=== PATIENT | female | born 1975 | race African-American/Black ===

== ENCOUNTER 2018-06-07 14:23 | Inpatient (IN) | payer OTHER ==
[~2018-06-07] VITALS: Ht 165.1 cm; Wt 119.0 kg
[2018-06-07] VITALS (11 sets, daily range): BP systolic 80–111; BP diastolic 39–51
[2018-06-07] MEDS ORDERED: DOXYCYCLINE HYCLATE 100 MG in IV DEXTROSE 5% 100ML 100 ML IV ONE (15:00)
[2018-06-07] MEDS ORDERED: ACETAMINOPHEN 500 MG TABLET PO ONE (15:00)
[2018-06-07] MEDS ORDERED: IPRATRPIUM/ALBUTEROL 0.5/2.5MG 3 ML NEBU. NEB ONE (15:00)
[2018-06-07] MEDS ORDERED: cefTRIAXone IV Push 1 GM VIAL. IVP ONE (15:00)
[2018-06-07] MEDS ORDERED: IV NORMAL SALINE 1000ML BAG 1,000 ML IV ONE ×3 (15:00→16:45)
--- NOTE | 2018-06-07 15:02 | RAD ---
Single view chest 06/07/2018 CLINICAL INDICATION: Chest pain for 2 days. COMPARISON: None. FINDINGS: Cardiac silhouettes unremarkable. There are patchy bibasilar airspace opacities. There is a retrocardiac gaseous density. No definite pleural effusion. No pneumothorax. IMPRESSION: 1. Patchy bibasilar airspace opacities concerning for multifocal pneumonia, though pneumonitis on an aspirational basis not excluded. 2. Retrocardiac gaseous density, may represent a hiatal hernia versus partial aeration of the left lower lobe. Electronically signed by: Rico Hill MD (06/07/2018 2:59 PM) [facility] [place]
--- NOTE | 2018-06-07 15:07 | PHYS DOC ---
Past Medical History Past Medical History: A-Fib, Asthma, Diabetes-Type II, DVT Additional Past Medical Histor: PE Past Surgical History: Cholecystectomy Alcohol Use: None Drug Use: None Adult General Chief Complaint Chief Complaint: CHEST PAIN HPI HPI Patient is a 43 year old female who presents with episodic chest pain, non-productive cough, and increasing shortness of breath for 2 weeks. She reports associated hypotension at home with systolic in 80's with tachycardia in the 130s for the last 2 days. Also reports chills last night. Recent household sick contacts with upper respiratory infection. Reports history of atrial fibrillation with PE in September 2017. Currently taking Cardizem and Xarelto with a high degree of compliance. [] Review of Systems Review of Systems Constitutional: Endorses chills. Denies fever. [] Eyes: Denies change in visual acuity, redness, or eye pain [] HENT: Denies nasal congestion or sore throat [] Respiratory: Endorses cough, shortness of breath, and dyspnea on exertion. [] Cardiovascular: Denies orthopnea[] GI: Denies abdominal pain, nausea, vomiting, bloody stools or diarrhea [] : Denies dysuria or hematuria [] Musculoskeletal: Denies back pain or joint pain [] Integument: Denies rash or skin lesions [] Neurologic: Denies headache, focal weakness or sensory changes [] Endocrine: Denies polyuria or polydipsia [] All other systems were reviewed and found to be within normal limits, except as documented in this note. Current Medications Current Medications Current Medications Medications (Trade) Dose Ordered Sig/Torey Start Time Stop Time Status Last Admin Dose Admin Acetaminophen (Tylenol) 1,000 mg 1X ONCE 06/07/18 15:00 06/07/18 15:09 DC 06/07/18 16:11 1,000 MG Albuterol/ Ipratropium (Duoneb) 3 ml 1X ONCE 06/07/18 15:00 06/07/18 15:09 DC 06/07/18 15:35 3 ML Ceftriaxone Sodium (Rocephin) 1 gm 1X ONCE 06/07/18 15:00 06/07/18 16:37 DC Doxycycline Hyclate 100 mg/ Dextrose 100 ml @ 50 mls/hr 1X ONCE 06/07/18 15:00 06/07/18 16:59 Piperacillin Sod/ Tazobactam Sod (Zosyn Per Pharmacy) 1 each PRN DAILY PRN 06/07/18 16:45 UNV Piperacillin Sod/ Tazobactam Sod 3.375 gm/Sodium Chloride 50 ml @ 100 mls/hr 1X ONCE 06/07/18 16:45 06/07/18 17:14 Sodium Chloride 1,000 ml @ 1,000 mls/hr 1X ONCE 06/07/18 16:45 06/07/18 17:44 Vancomycin HCl (Vanco Per Pharmacy) 1 each PRN DAILY PRN 06/07/18 15:00 UNV Vancomycin HCl 2 gm/Sodium Chloride 500 ml @ 250 mls/hr 1X ONCE 06/07/18 15:30 06/07/18 17:29 Allergies Allergies Allergies Coded Allergies Type Severity Reaction Last Updated Verified NSAIDS (Non-Steroidal Anti-Inflamma Allergy Unknown 02/14/15 Yes Physical Exam Physical Exam Constitutional: Well developed, well nourished, moderate acute distress, ill- appearing. [] HENT: Normocephalic, atraumatic, bilateral external ears normal, oropharynx dry , no oral exudates, nose normal. [] Eyes: PERRLA, EOMI, conjunctiva normal, no discharge. [] Neck: Normal range of motion, no tenderness, supple, no stridor. [] Cardiovascular: tachycardia, regular rhythm, no murmur [] Lungs & Thorax: Diffuse wheezing with crackles [] Abdomen: Bowel sounds normal, soft, no tenderness, no masses, no pulsatile masses. [] Skin: PALLOR Back: No tenderness, no CVA tenderness. [] Extremities: No tenderness, no cyanosis, no clubbing, ROM intact, bilateral pitting edema. [] Neurologic: Alert and oriented X 3, normal motor function, normal sensory function, no focal deficits noted. [] Psychologic: Affect normal, judgement normal, mood normal. [] Current Patient Data Vital Signs Vital Signs Date Time Temp Pulse Resp B/P (MAP) Pulse Ox O2 Delivery O2 Flow Rate FiO2 06/07/18 15:35 99 Nasal Cannula 3.0 06/07/18 14:40 98.7 134 22 110/48 (68) 98.7 Lab Values Laboratory Tests Test 06/07/18 15:15 06/07/18 15:40 White Blood Count 11.2 x10^3/uL (4.0-11.0) H Red Blood Count 1.81 x10^6/uL (3.50-5.40) L Hemoglobin 3.7 g/dL (12.0-15.5) *L Hematocrit 12.6 % (36.0-47.0) *L Mean Corpuscular Volume 70 fL (79-100) L Mean Corpuscular Hemoglobin 21 pg (25-35) L Mean Corpuscular Hemoglobin Concent 29 g/dL (31-37) L Red Cell Distribution Width 24.1 % (11.5-14.5) H Platelet Count 466 x10^3/uL (140-400) H Neutrophils (%) (Auto) 90 % (31-73) H Lymphocytes (%) (Auto) 6 % (24-48) L Monocytes (%) (Auto) 3 % (0-9) Eosinophils (%) (Auto) 0 % (0-3) Basophils (%) (Auto) 0 % (0-3) Neutrophils # (Auto) 10.2 x10^3uL (1.8-7.7) H Lymphocytes # (Auto) 0.7 x10^3/uL (1.0-4.8) L Monocytes # (Auto) 0.4 x10^3/uL (0.0-1.1) Eosinophils # (Auto) 0.0 x10^3/uL (0.0-0.7) Basophils # (Auto) 0.0 x10^3/uL (0.0-0.2) Segmented Neutrophils % 55 % (35-66) Band Neutrophils % 34 % (0-9) H Lymphocytes % 10 % (24-48) L Monocytes % 1 % (0-10) Platelet Estimate Increased (ADEQUATE) Polychromasia Slight Hypochromasia Mod Anisocytosis Mod Microcytosis Marked Ovalocytes Few Schistocytes Occ Prothrombin Time 15.2 SEC (11.7-14.0) H Prothrombin Time INR 1.2 (0.8-1.1) H Fibrinogen 593 mg/dL (200-440) H Maternal Serum HCG Beta Subunit < 1 mIU/mL (0-5) Sodium Level 138 mmol/L (136-145) Potassium Level 3.6 mmol/L (3.5-5.1) Chloride Level 99 mmol/L (98-107) Carbon Dioxide Level 18 mmol/L (21-32) L Anion Gap 21 (6-14) H Blood Urea Nitrogen 24 mg/dL (7-20) H Creatinine 1.8 mg/dL (0.6-1.0) H Estimated GFR (Cockcroft-Gault) 36.8 BUN/Creatinine Ratio 13 (6-20) Glucose Level 167 mg/dL (70-99) H Lactic Acid Level 8.2 mmol/L (0.4-2.0) *H Calcium Level 8.2 mg/dL (8.5-10.1) L Magnesium Level 1.8 mg/dL (1.8-2.4) Total Bilirubin 0.3 mg/dL (0.2-1.0) Aspartate Amino Transferase (AST) 32 U/L (15-37) Alanine Aminotransferase (ALT) 18 U/L (14-59) Alkaline Phosphatase 83 U/L (46-116) Troponin I Quantitative < 0.017 ng/mL (0.000-0.055) TW-[id number]-[id number]-Type Natriuretic Peptide 2253 pg/mL (0-124) H Total Protein 6.5 g/dL (6.4-8.2) Albumin 2.9 g/dL (3.4-5.0) L Albumin/Globulin Ratio 0.8 (1.0-1.7) L Procalcitonin 30.50 ng/mL (0.00-0.10) H O2 Saturation 87 % (92-99) L Arterial Blood pH 7.42 (7.35-7.45) Arterial Blood pCO2 at Patient Temp 26 mmHg (35-46) L Arterial Blood pO2 at Patient Temp 61 mmHg (75-108) L Arterial Blood HCO3 16 mmol/L (21-28) L Arterial Blood Base Excess -8 mmol/L (-3-3) L FiO2 32 Laboratory Tests 06/07/18 15:15 Laboratory Tests 06/07/18 15:15 EKG EKG Sinus tachycardia with probable rate related ST depression in leads V4-V6 Rate 135[] Radiology/Procedures Radiology/Procedures PROCEDURE: PORTABLE CHEST 1 Impressions: Single view chest 06/07/2018 CLINICAL INDICATION: Chest pain for 2 days. COMPARISON: None. FINDINGS: Cardiac silhouettes unremarkable. There are patchy bibasilar airspace opacities. There is a retrocardiac gaseous density. No definite pleural effusion. No pneumothorax. IMPRESSION: 1. Patchy bibasilar airspace opacities concerning for multifocal pneumonia, though pneumonitis on an aspirational basis not excluded. 2. Retrocardiac gaseous density, may represent a hiatal hernia versus partial aeration of the left lower lobe. Electronically signed by: Rico Hill MD (06/07/2018 2:59 PM) [facility] [place] Med Decision Making Course & Med Decision Making Pt is a 43 year old female with past medical history of asthma , A. fib, pulmonary emboli presents with episodic chest pain, cough, and increasing shortness of breath for 2 weeks. Patient presentation and symptoms most consistent with pneumonia and meets sepsis criteria. Recurrent pulmonary emboli is possible despite current anticoagulation treatment with Xarelto. Hemoglobin 3.7, Hct 12.6. with no identified origin of bleeding. Rule out occult GI bleed. Central line placed due to poor peripheral access. Pertinent Labs and Imaging studies reviewed. (See chart for details) Plan CXR CBC, CMP lactic, procalcitonin, BNP IVF Start Vanc and Zosyn REPEAT LACTIC ORDERED BP OK IN THE ED. CONSIDERED PE BUT MORE LIKELY SEPTIC SHOCK can't anticoagulate with hemoglobin 3.7 rectal exam is pending patient denies blood loss rectally by history. Blood repletion [] Final plan patient is critically ill Critical care time was 45 minutes exclusive of procedures. likely septic shock brought spectrum antibiotics central line was placed but then she's was already spoke with Dr. STEPHENS Indication: Vascular access Consent: The patient provided consent for this procedure. Procedure: The patient was positioned appropriately and the skin over the RIGHT IJ was prepped and draped in a sterile fashion. Local anesthesia was used. Ultrasound guidance utilized. A large bore needle was used to identify the vein. A guide wire was then inserted into the vein through the needle. A triple lumen catheter was then inserted into the vessel over the guide wire using the Seldinger technique. All ports showed good, free flowing blood return and were flushed with saline solution. The catheter was then securely fastened to the skin with sutures and covered with a sterile dressing. A post procedure X-ray was ordered. NO PTX, LINE SLIGTHLY DEEP AWAITING FINAL READ. The patient tolerated the procedure well. Complications: none. [] Dragon Disclaimer Dragon Disclaimer This electronic medical record was generated, in whole or in part, using a voice recognition dictation system. Departure Departure Impression: Primary Impression: Septic shock Additional Impression: Anemia Disposition: 09 ADMITTED INPATIENT Admitting Physician: Mindy Stephens Condition: CRITICAL Referrals: ANGELITA LABOY MD (PCP) Problem Qualifiers SARI BARON MD Jun 07, 2018 15:07
[2018-06-07] MEDS ORDERED: VANCOMYCIN 2 GM in IV NORMAL SALINE 500ML BAG 500 ML IV ONE (15:30)
[2018-06-07 15:36] LABS: BASO % 0 % (0-3); EOS % 0 % (0-3); LYMPH # 0.7 x10^3/uL (1.0-4.8); LYMPH % 6 % (24-48); MEAN CORPUSCULAR HEMOGLOBIN 21 pg (25-35); MEAN CORPUSCULAR HGB CONC 29 g/dL (31-37); MEAN CORPUSCULAR VOLUME 70 fL (79-100); MONO # 0.4 x10^3/uL (0.0-1.1); MONO % 3 % (0-9); NEUT # 10.2 x10^3uL (1.8-7.7); NEUT % 90 % (31-73); PLATELET COUNT 466 x10^3/uL (140-400); RED BLOOD COUNT 1.81 x10^6/uL (3.50-5.40); RED CELL DISTRIBUTION WIDTH 24.1 % (11.5-14.5); WHITE BLOOD COUNT 11.2 x10^3/uL (4.0-11.0)
[2018-06-07 15:46] LABS: PROTHROMBIN TIME PATIENT 15.2 SEC (11.7-14.0)
[2018-06-07 15:48] LABS: HEMATOCRIT 12.6 % (36.0-47.0); HEMOGLOBIN 3.7 g/dL (12.0-15.5)
[2018-06-07 15:50] LABS: BASE EXCESS ABG -8 mmol/L (-3-3); HCO3 ABG 16 mmol/L (21-28); PCO2 ABG 26 mmHg (35-46); PO2 ABG 61 mmHg (75-108); SAT O2 ABG 87 % (92-99)
[2018-06-07 15:52] LABS: FIO2 ABG 32
[2018-06-07 16:05] LABS: CALCIUM 8.2 mg/dL (8.5-10.1); CREATININE 1.8 mg/dL (0.6-1.0); GFR 36.8; POTASSIUM 3.6 mmol/L (3.5-5.1)
[2018-06-07 16:10] LABS: ALBUMIN 2.9 g/dL (3.4-5.0); ALBUMIN/GLOBULIN RATIO 0.8 (1.0-1.7); MAGNESIUM 1.8 mg/dL (1.8-2.4); TOTAL BILIRUBIN 0.3 mg/dL (0.2-1.0); TOTAL PROTEIN 6.5 g/dL (6.4-8.2)
[2018-06-07 16:14] LABS: % BANDS 34 % (0-9); % LYMPHS 10 % (24-48); % MONOS 1 % (0-10); % SEGS 55 % (35-66); PLT ESTIMATE INCREASED (ADEQUATE)
[2018-06-07 16:17] LABS: ANISOCYTOSIS MOD; HYPOCHROMIA MOD; MICROCYTOSIS MARKED; OVALOCYTES FEW; POLYCHROMASIA SLIGHT; SCHISTOCYTES OCC
[2018-06-07] MEDS ORDERED: PIP/TAZO PER PHARMACY MC PRN (16:45)
[2018-06-07] MEDS ORDERED: PIPERACILLIN/TAZOBACTAM 3.375 GM in IV NORMAL SALINE 50ML 50 ML IV ONE (16:45)
--- NOTE | 2018-06-07 16:55 | RAD ---
Single view chest 06/07/2018 CLINICAL INDICATION: Insertion of central line. COMPARISON: Chest 06/07/2018. FINDINGS: Right IJ central venous catheter with distal tip overlying the mid right atrial level. Cardiac and mediastinal silhouettes are stable. No significant change in right lower lobe airspace opacities, left lower lobe airspace opacities, and probable hiatal hernia. No definite pleural effusion or pneumothorax. IMPRESSION: 1. Placement of right IJ central venous catheter at the mid right atrial level. 2. Bibasilar airspace opacities concerning for multifocal infection or pneumonitis with aspiration not excluded. Follow-up two-view chest radiograph is recommended to assess for resolution. 3. Probable hiatal hernia. Electronically signed by: Rico Hill MD (06/07/2018 4:52 PM) [facility] [place]
[2018-06-07] MEDS: VANCOMYCIN PER PHARMACY MC PRN ×2 (17:12→17:14)
--- NOTE | 2018-06-07 17:13 | NUR ---
Pharmacy Vancomycin Dosing Note S:Consulted to monitor and dose vancomycin started 06/07/18. O:ADONIS PIMENTEL is a 43 year old F with sepsis, lactic acidosis. Height: 5 feet, 1 inches Weight: 111.1 kg Dosing Weight: Actual Other Antibiotics: ZOSYN 3.375G IV Q6HRS LABS: Last BUN: 24 Last Creatinine: 1.8 Creatinine Clearance: 45 mL/min Last WBC: 11.2 Last Procalcitonin: 30.5 (SCr elevated, may be false PCT level) Tmax (past 24 hours): 98.7 Microbiology: BLOOD AND URINE CX PENDING A: Patient requires vancomycin for possible sepsis, goal trough 15-20 mcg/ml. Patient's SCr is 1.8 on admission with an eCrCl of 45 ml/min; this estimate is likely inflated due to her weight. Initiate the following: P: 1. Initiate Vancomycin 1500 mg IV q24h 2. Follow up Trough level on 06/09/18 at 1630 3. Pharmacy will continue to monitor, follow and adjust therapy as needed. ALEJANDRO COREY [facility], 06/07/18 [id number]
[2018-06-07 18:17] LABS: FECAL OB PT NEGATIVE (NEG)
[2018-06-07 18:24] LABS: INFLUENZA A PATIENT NEGATIVE (NEGATIVE); INFLUENZA B PATIENT NEGATIVE (NEGATIVE)
--- NOTE | 2018-06-07 19:23 | NUR ---
Patient arrived to room 107 at 1815 from ED. Upon arrival blood pressure was 91/41. Started 1 L NS bolus. Patient was A/O x 3, experiencing SOA and was on 3 LNC. Patient had a hgb of 3.7, type and screen ordered. Because of patient antibodies, patients blood was not ready. Dr Stephens was called, received orders for emergent transfusion. Blood started at 1907, cosigned with oncoming nurse Lonnie. Bedside shift report given. Family at bedside.
[2018-06-07 21:49] LABS: RED BLOOD COUNT 2.12 x10^6/uL (3.50-5.40); RED CELL DISTRIBUTION WIDTH 24.3 % (11.5-14.5); WHITE BLOOD COUNT 7.8 x10^3/uL (4.0-11.0)
[2018-06-07 21:54] LABS: HEMATOCRIT 16.5 % (36.0-47.0); HEMOGLOBIN 5.2 g/dL (12.0-15.5)
[2018-06-07 22:32] LABS: BILIRUBIN,URINE NEGATIVE (NEG); CLARITY,URINE CLEAR; COLOR,URINE YELLOW; NITRITE,URINE NEGATIVE (NEG); PROTEIN,URINE 30 mg/dL (NEG-TRACE); UROBILINOGEN,URINE 0.2 mg/dL (0.2 mg/dL)
[2018-06-07] MEDS: IV NORMAL SALINE 1000ML BAG 1,000 ML IV SCH (22:38)
[2018-06-07 22:42] LABS: AMORPHOUS SEDIMENT,UR PRESENT /HPF; BACTERIA,URINE 0 /HPF (0-FEW); RBC,URINE RARE /HPF (0-2); SQUAMOUS EPITHELIAL CELL,UR MOD /LPF; WBC,URINE RARE /HPF (0-4)
[2018-06-07] MEDS: PIPERACILLIN/TAZOBACTAM 3.375 GM in IV NORMAL SALINE 50ML 50 ML IV SCH (23:42)
[2018-06-07] MEDS ORDERED: FUROSEMIDE 100 MG/10 ML VIAL. IVP ONE (23:55)
[2018-06-08] VITALS (26 sets, daily range): BP systolic 100–124; BP diastolic 51–72
[2018-06-08] MEDS ORDERED: ALBUTEROL SULFATE 2.5 MG/3 ML NEBU. NEB ONE (00:15)
--- NOTE | 2018-06-08 01:58 | NUR ---
Received call from blood bank notifying that pt. had antibodies to un-crossmatched blood administered emergently. Pt. had no transfusion reaction symptoms during administration. Dr. Stephens paged and returned call, notified of these findings and critical labs reported. Orders received.
[2018-06-08] MEDS: PIPERACILLIN/TAZOBACTAM 3.375 GM in IV NORMAL SALINE 50ML 50 ML IV SCH ×4 (05:46→23:42)
[2018-06-08 06:03] LABS: HEMATOCRIT 21.5 % (36.0-47.0); RED BLOOD COUNT 2.77 x10^6/uL (3.50-5.40); RED CELL DISTRIBUTION WIDTH 21.3 % (11.5-14.5); WHITE BLOOD COUNT 10.2 x10^3/uL (4.0-11.0)
[2018-06-08 06:23] LABS: ALBUMIN 2.3 g/dL (3.4-5.0); ALBUMIN/GLOBULIN RATIO 0.7 (1.0-1.7); CALCIUM 7.4 mg/dL (8.5-10.1); CREATININE 1.1 mg/dL (0.6-1.0); POTASSIUM 3.1 mmol/L (3.5-5.1); TOTAL BILIRUBIN 1.8 mg/dL (0.2-1.0); TOTAL PROTEIN 5.6 g/dL (6.4-8.2)
[2018-06-08] MEDS: IV NORMAL SALINE 1000ML BAG 1,000 ML IV SCH ×2 (07:31→20:36)
[2018-06-08] MEDS ORDERED: GABA600T7 PO (07:39)
[2018-06-08] MEDS ORDERED: IPRATRPIUM/ALBUTEROL 0.5/2.5MG 3 ML NEBU. NEB ONE (07:45)
[2018-06-08] MEDS ORDERED: RIVA15TA PO (08:56)
[2018-06-08] MEDS ORDERED: BACL20TA PO (08:56)
[2018-06-08] MEDS ORDERED: LEXAPRO20 MG PO (08:56)
[2018-06-08] MEDS ORDERED: SULF1TAB24 PO (08:56)
[2018-06-08] MEDS ORDERED: ALPR0.5T PO (08:56)
[2018-06-08] MEDS ORDERED: CYCL5TAB PO (08:56)
[2018-06-08] MEDS ORDERED: ALBU2.5V8 INH (08:56)
[2018-06-08] MEDS ORDERED: METH-38 PO (08:56)
[2018-06-08] MEDS ORDERED: DILT30TA26 PO (08:56)
[2018-06-08] MEDS ORDERED: PANT20TA2 PO (08:56)
[2018-06-08] MEDS: VANCOMYCIN PER PHARMACY MC PRN (09:18)
--- NOTE | 2018-06-08 09:34 | NUR ---
Pharmacy Vancomycin Dosing Note S:Consulted to monitor and dose vancomycin started 06/07/18. O:ADONIS PIMENTEL is a 43 year old F with Sepsis . Height: 5 feet, 1 inches Weight: 109.809844 kg [place] Body Weight: 47.80 Adjusted Body Weight: 72.68 Dosing Weight: Actual Other Antibiotics: ZOSYN 3.375G IV Q6HRS LABS: Last BUN: 24 Last Creatinine: 1.1 Creatinine Clearance: 75 mL/min Last WBC: 10.2 Last Procalcitonin: 30.5 (SCr elevated, may be false PCT level) Tmax (past 24 hours): 98.7 Microbiology: BLOOD AND URINE CX PENDING I/O: 1990/6237 Drug Levels: Last level: on at Last dose given 06/07/18 at 1700 Vancomycin Dosing: Loading Dose: 2000 mg x1 Dosing Weight: Actual Target Trough: 15-20 A: Based on: RENAL FUNCTION IMPROVEMENT P: 1. CHANGE Vancomycin 1500 mg IV q12h 2. Follow up Trough level on 06/09/18 at 2230 3. Pharmacy will continue to monitor, follow and adjust therapy as needed. KARIME GUERRIER [facility], 06/08/18 [id number]
[2018-06-08] MEDS ORDERED: FERR325T14 PO (09:45)
[2018-06-08] MEDS ORDERED: PRAM0.255 PO (09:51)
[2018-06-08] MEDS ORDERED: OXYC1TAB19 PO (09:51)
[2018-06-08] MEDS ORDERED: TIZA4TAB PO (09:51)
--- NOTE | 2018-06-08 10:38 | RAD ---
PORTABLE CHEST 1V History: CONGESTION Comparison: One day earlier Right IJ line is again identified. The tip is difficult to define but appears to overlie the right atrium as was seen previously. No evidence of pneumothorax. Opacities are identified in both lung bases similar to the prior study. There may be small pleural effusions. Retrocardiac opacity again seen and may represent a hiatal hernia. IMPRESSION: Lung base infiltrates are again identified with possible small effusions. Electronically signed by: Vince Johnson MD (06/08/2018 10:34 AM) [facility]
[2018-06-08] MEDS ORDERED: FLUT1DIS5 IH (10:48)
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
[2018-06-08] MEDS ORDERED: FUROSEMIDE 20 MG/2 ML VIAL. IVP ONE (11:15)
[2018-06-08] MEDS: CYCLOBENZAPRINE 10 MG TABLET. PO SCH ×2 (11:20→20:35)
[2018-06-08] MEDS: POTASSIUM CHLORIDE 20 MEQ TABLET.ER. PO SCH (11:20)
[2018-06-08] MEDS: PANTOPRAZOLE 40 MG TABLET.DR. PO SCH (11:20)
[2018-06-08] MEDS: dilTIAZem HCL 30 MG TABLET PO SCH ×3 (11:21→20:36)
[2018-06-08] MEDS: VANCOMYCIN 1.5 GM in IV NORMAL SALINE 500ML BAG 500 ML IV SCH ×2 (11:22→23:40)
--- NOTE | 2018-06-08 11:50 | EKG ---
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
[2018-06-08] MEDS: ALBUTEROL SULFATE 2.5 MG/3 ML NEBU. NEB SCH ×3 (12:18→19:32)
[2018-06-08] MEDS ORDERED: methylPREDNISolone SOD SUCC PF 40 MG/ML VIAL. IV SCH (12:30)
[2018-06-08] MEDS: BACLOFEN 10 MG TABLET. PO SCH ×2 (13:44→20:34)
[2018-06-08] MEDS: GABAPENTIN 300 MG CAPSULE. PO SCH ×2 (13:44→20:34)
[2018-06-08] MEDS: ACETAMINOPHEN 500 MG TABLET PO PRN (16:40)
[2018-06-08] MEDS ORDERED: VANCOMYCIN 1.75 GM in IV NORMAL SALINE 500ML BAG 500 ML IV SCH (17:00)
[2018-06-08] MEDS: PRAMIPEXOLE 0.25 MG TABLET. PO SCH (20:34)
[2018-06-09] VITALS (14 sets, daily range): BP systolic 105–135; BP diastolic 4–82
[2018-06-09] MEDS: IV NORMAL SALINE 1000ML BAG 1,000 ML IV SCH (04:15)
[2018-06-09] MEDS: PIPERACILLIN/TAZOBACTAM 3.375 GM in IV NORMAL SALINE 50ML 50 ML IV SCH ×3 (05:34→17:50)
[2018-06-09 05:54] LABS: HEMATOCRIT 29.7 % (36.0-47.0); RED BLOOD COUNT 3.85 x10^6/uL (3.50-5.40); RED CELL DISTRIBUTION WIDTH 21.2 % (11.5-14.5); WHITE BLOOD COUNT 13.1 x10^3/uL (4.0-11.0)
[2018-06-09 05:58] LABS: CREATININE 0.9 mg/dL (0.6-1.0); GFR 81.9
[2018-06-09 06:03] LABS: HEMOGLOBIN 9.5 g/dL (12.0-15.5)
[2018-06-09] MEDS: PANTOPRAZOLE 40 MG TABLET.DR. PO SCH (07:35)
[2018-06-09] MEDS: POTASSIUM CHLORIDE 20 MEQ TABLET.ER. PO SCH (07:36)
[2018-06-09] MEDS: ALBUTEROL SULFATE 2.5 MG/3 ML NEBU. NEB SCH ×4 (07:42→20:28)
[2018-06-09] MEDS ORDERED: DEXTROSE 50% 25 GM / 50ML DISP.SYRIN. IV PRN (08:15)
--- NOTE | 2018-06-09 08:28 | PDOC ---
PROGRESS NOTES Subjective Subjective Patient reports some cough and wheezing. Objective Objective Vital Signs Date Time Temp Pulse Resp B/P (MAP) Pulse Ox O2 Delivery O2 Flow Rate FiO2 06/09/18 07:43 96 Room Air 06/09/18 06:00 82 16 117/71 (86) 06/09/18 04:00 98.8 98.8 06/07/18 21:00 3.0 Intake and Output 06/09/18 07:00 Intake Total 2584 ml Output Total 3185 ml Balance -601 ml Intake IV Total 2584 ml Output Urine Total 3185 ml Physical Exam Abdomen: Normal bowel sounds, Soft, No tenderness Heart: Regular rate Extremities: No edema General: Alert, Oriented X3, No acute distress Lungs: Other (coarse BS bilateral bases with moderate diffuse expiratory wheezes) Assessment Assessment Problems Medical Problems: (1) Anemia Status: Acute (2) Septic shock Status: Acute Plan Plan of Care 1. Sepsis with pneumonia and AE asthma - stable, afebrile, no hypoxia on RA. Continue broad-spectrum abx, increase Solumedrol, continue nebs. 2. profound anemia - Hgb increased on lab today. Await Hematology consult. 3. tachycardia - resolved, no indication for Cardiology at this time. 4. s/p left leg fracture - PT and OT ordered to help maintain mobility. 5. chronic anxiety - stable, continue home medication. 6. DM2 - has been diet-controlled. May have some hyperglycemia with increase in Solumedrol, SS ordered. Comment Review of Relevant I have reviewed the following items tavon (where applicable) has been applied. Labs Laboratory Tests Test 06/07/18 15:15 06/07/18 15:40 06/07/18 17:50 06/07/18 20:40 White Blood Count 11.2 x10^3/uL (4.0-11.0) 7.8 x10^3/uL (4.0-11.0) Red Blood Count 1.81 x10^6/uL (3.50-5.40) 2.12 x10^6/uL (3.50-5.40) Hemoglobin 3.7 g/dL (12.0-15.5) 5.2 g/dL (12.0-15.5) Hematocrit 12.6 % (36.0-47.0) 16.5 % (36.0-47.0) Mean Corpuscular Volume 70 fL (79-100) 78 fL (79-100) Mean Corpuscular Hemoglobin 21 pg (25-35) 24 pg (25-35) Mean Corpuscular Hemoglobin Concent 29 g/dL (31-37) 31 g/dL (31-37) Red Cell Distribution Width 24.1 % (11.5-14.5) 24.3 % (11.5-14.5) Platelet Count 466 x10^3/uL (140-400) 345 x10^3/uL (140-400) Neutrophils (%) (Auto) 90 % (31-73) Lymphocytes (%) (Auto) 6 % (24-48) Monocytes (%) (Auto) 3 % (0-9) Eosinophils (%) (Auto) 0 % (0-3) Basophils (%) (Auto) 0 % (0-3) Neutrophils # (Auto) 10.2 x10^3uL (1.8-7.7) Lymphocytes # (Auto) 0.7 x10^3/uL (1.0-4.8) Monocytes # (Auto) 0.4 x10^3/uL (0.0-1.1) Eosinophils # (Auto) 0.0 x10^3/uL (0.0-0.7) Basophils # (Auto) 0.0 x10^3/uL (0.0-0.2) Segmented Neutrophils % 55 % (35-66) Band Neutrophils % 34 % (0-9) Lymphocytes % 10 % (24-48) Monocytes % 1 % (0-10) Platelet Estimate Increased (ADEQUATE) Polychromasia Slight Hypochromasia Mod Anisocytosis Mod Microcytosis Marked Ovalocytes Few Schistocytes Occ Prothrombin Time 15.2 SEC (11.7-14.0) Prothromb Time International Ratio 1.2 (0.8-1.1) Fibrinogen 593 mg/dL (200-440) Maternal Serum HCG Beta Subunit < 1 mIU/mL (0-5) Sodium Level 138 mmol/L (136-145) Potassium Level 3.6 mmol/L (3.5-5.1) Chloride Level 99 mmol/L (98-107) Carbon Dioxide Level 18 mmol/L (21-32) Anion Gap 21 (6-14) Blood Urea Nitrogen 24 mg/dL (7-20) Creatinine 1.8 mg/dL (0.6-1.0) Estimated GFR (Cockcroft-Gault) 36.8 BUN/Creatinine Ratio 13 (6-20) Glucose Level 167 mg/dL (70-99) Lactic Acid Level 8.2 mmol/L (0.4-2.0) 4.6 mmol/L (0.4-2.0) Calcium Level 8.2 mg/dL (8.5-10.1) Magnesium Level 1.8 mg/dL (1.8-2.4) Total Bilirubin 0.3 mg/dL (0.2-1.0) Aspartate Amino Transf (AST/SGOT) 32 U/L (15-37) Alanine Aminotransferase (ALT/SGPT) 18 U/L (14-59) Alkaline Phosphatase 83 U/L (46-116) Troponin I Quantitative < 0.017 ng/mL (0.000-0.055) [id number]-Type Natriuretic Peptide 2253 pg/mL (0-124) Total Protein 6.5 g/dL (6.4-8.2) Albumin 2.9 g/dL (3.4-5.0) Albumin/Globulin Ratio 0.8 (1.0-1.7) Procalcitonin 30.50 ng/mL (0.00-0.10) O2 Saturation 87 % (92-99) Arterial Blood pH 7.42 (7.35-7.45) Arterial Blood pCO2 at Patient Temp 26 mmHg (35-46) Arterial Blood pO2 at Patient Temp 61 mmHg (75-108) Arterial Blood HCO3 16 mmol/L (21-28) Arterial Blood Base Excess -8 mmol/L (-3-3) FiO2 32 Stool Occult Blood Negative (NEG) Influenza Type A Antigen Negative (NEGATIVE) Influenza Type B Antigen Negative (NEGATIVE) Test 06/07/18 22:15 06/08/18 05:50 06/09/18 05:38 Urine Collection Type Unknown Urine Color Yellow Urine Clarity Clear Urine pH 6.0 Urine Specific Hester 1.020 Urine Protein 30 mg/dL (NEG-TRACE) Urine Glucose (UA) Negative mg/dL (NEG) Urine Ketones (Stick) Negative mg/dL (NEG) Urine Blood Negative (NEG) Urine Nitrite Negative (NEG) Urine Bilirubin Negative (NEG) Urine Urobilinogen Dipstick 0.2 mg/dL (0.2 mg/dL) Urine Leukocyte Esterase Negative (NEG) Urine RBC Rare /HPF (0-2) Urine WBC Rare /HPF (0-4) Urine Squamous Epithelial Cells Mod /LPF Urine Amorphous Sediment Present /HPF Urine Bacteria 0 /HPF (0-FEW) White Blood Count 10.2 x10^3/uL (4.0-11.0) 13.1 x10^3/uL (4.0-11.0) Red Blood Count 2.77 x10^6/uL (3.50-5.40) 3.85 x10^6/uL (3.50-5.40) Hemoglobin 7.0 g/dL (12.0-15.5) 9.5 g/dL (12.0-15.5) Hematocrit 21.5 % (36.0-47.0) 29.7 % (36.0-47.0) Mean Corpuscular Volume 77 fL (79-100) 77 fL (79-100) Mean Corpuscular Hemoglobin 25 pg (25-35) 25 pg (25-35) Mean Corpuscular Hemoglobin Concent 33 g/dL (31-37) 32 g/dL (31-37) Red Cell Distribution Width 21.3 % (11.5-14.5) 21.2 % (11.5-14.5) Platelet Count 304 x10^3/uL (140-400) 261 x10^3/uL (140-400) Sodium Level 143 mmol/L (136-145) Potassium Level 3.1 mmol/L (3.5-5.1) Chloride Level 107 mmol/L (98-107) Carbon Dioxide Level 24 mmol/L (21-32) Anion Gap 12 (6-14) Blood Urea Nitrogen 16 mg/dL (7-20) Creatinine 1.1 mg/dL (0.6-1.0) 0.9 mg/dL (0.6-1.0) Estimated GFR (Cockcroft-Gault) 65.0 81.9 BUN/Creatinine Ratio 15 (6-20) Glucose Level 109 mg/dL (70-99) Calcium Level 7.4 mg/dL (8.5-10.1) Total Bilirubin 1.8 mg/dL (0.2-1.0) Aspartate Amino Transf (AST/SGOT) 37 U/L (15-37) Alanine Aminotransferase (ALT/SGPT) 25 U/L (14-59) Alkaline Phosphatase 67 U/L (46-116) Total Protein 5.6 g/dL (6.4-8.2) Albumin 2.3 g/dL (3.4-5.0) Albumin/Globulin Ratio 0.7 (1.0-1.7) Laboratory Tests Test 06/09/18 05:38 White Blood Count 13.1 x10^3/uL (4.0-11.0) Red Blood Count 3.85 x10^6/uL (3.50-5.40) Hemoglobin 9.5 g/dL (12.0-15.5) Hematocrit 29.7 % (36.0-47.0) Mean Corpuscular Volume 77 fL (79-100) Mean Corpuscular Hemoglobin 25 pg (25-35) Mean Corpuscular Hemoglobin Concent 32 g/dL (31-37) Red Cell Distribution Width 21.2 % (11.5-14.5) Platelet Count 261 x10^3/uL (140-400) Creatinine 0.9 mg/dL (0.6-1.0) Estimated GFR (Cockcroft-Gault) 81.9 Microbiology 06/07/18 Blood Culture - Preliminary, Resulted NO GROWTH AFTER 1 DAY Medications Current Medications Sodium Chloride 1,000 ml @ 1,000 mls/hr 1X ONCE IV Last administered on at 15:24; Start 06/07/18 at 15:00; Stop 06/07/18 at 15:59; Status DC Sodium Chloride 1,000 ml @ 1,000 mls/hr 1X ONCE IV Last administered on at 15:31; Start 06/07/18 at 15:00; Stop 06/07/18 at 15:59; Status DC Albuterol/ Ipratropium (Duoneb) 3 ml 1X ONCE NEB Last administered on at 15:35; Start 06/07/18 at 15:00; Stop 06/07/18 at 15:09; Status DC Acetaminophen (Tylenol) 1,000 mg 1X ONCE PO Last administered on 06/07/18at 16: 11; Start 06/07/18 at 15:00; Stop 06/07/18 at 15:09; Status DC Ceftriaxone Sodium (Rocephin) 1 gm 1X ONCE IVP ; Start 06/07/18 at 15:00; Stop 06/07/18 at 16:37; Status DC Vancomycin HCl (Vanco Per Pharmacy) 1 each PRN DAILY PRN MC SEE COMMENTS Last administered on 06/08/18at 09:18; Start 06/07/18 at 15:00 Doxycycline Hyclate 100 mg/ Dextrose 100 ml @ 50 mls/hr 1X ONCE IV Last administered on 06/07/18at 16:52; Start 06/07/18 at 15:00; Stop 06/07/18 at 16:59 ; Status DC Vancomycin HCl 2 gm/Sodium Chloride 500 ml @ 250 mls/hr 1X ONCE IV Last administered on 06/07/18at 16:58; Start 06/07/18 at 15:30; Stop 06/07/18 at 17:29 ; Status DC Sodium Chloride 1,000 ml @ 1,000 mls/hr 1X ONCE IV Last administered on at 16:59; Start 06/07/18 at 16:45; Stop 06/07/18 at 17:44; Status DC Piperacillin Sod/ Tazobactam Sod (Zosyn Per Pharmacy) 1 each PRN DAILY PRN MC SEE COMMENTS; Start 06/07/18 at 16:45 Piperacillin Sod/ Tazobactam Sod 3.375 gm/Sodium Chloride 50 ml @ 100 mls/hr 1X ONCE IV Last administered on 06/07/18at 16:53; Start 06/07/18 at 16:45; Stop 06/07/18 at 17:14; Status DC Piperacillin Sod/ Tazobactam Sod 3.375 gm/Sodium Chloride 50 ml @ 100 mls/hr Q6HRS IV Last administered on 06/09/18at 05:34; Start 06/08/18 at 00:00 Vancomycin HCl 1.75 gm/Sodium Chloride 500 ml @ 250 mls/hr Q24H IV ; Start at 17:00; Status Cancel Vancomycin HCl (Vancomycin Trough Level) 1 each 1X ONCE MC ; Start 06/09/18 at 22:30; Stop 06/09/18 at 22:31 Vancomycin HCl 1.5 gm/Sodium Chloride 500 ml @ 250 mls/hr Q12H IV Last administered on 06/08/18 23:40; Start 06/08/18 at 11:00 Sodium Chloride 1,000 ml @ 100 mls/hr Q10H IV Last administered on 06/08/18 20:36; Start 06/07/18 at 22:15 Furosemide (Lasix) 20 mg 1X ONCE IVP Last administered on 06/08/18 00:36; Start 06/07/18 at 23:55; Stop 06/07/18 at 23:56; Status DC Albuterol Sulfate (Ventolin Neb Soln) 2.5 mg 1X ONCE NEB Last administered on 06/08/18 00:18; Start 06/08/18 at 00:15; Stop 06/08/18 at 00:39; Status DC Albuterol/ Ipratropium (Duoneb) 3 ml 1X ONCE NEB Last administered on 08:44; Start 06/08/18 at 07:45; Stop 06/08/18 at 07:46; Status DC Diltiazem HCl (Cardizem) 30 mg QID PO Last administered on 06/08/18 20:36; Start 06/08/18 at 11:30 Baclofen (Lioresal) 20 mg TID PO Last administered on 06/08/18 20:34; Start at 14:00 Cyclobenzaprine HCl (Flexeril) 5 mg BID PO Last administered on 06/08/18 20:35 ; Start 06/08/18 at 11:00 Citalopram Hydrobromide (CeleXA) 40 mg DAILY PO ; Start 06/09/18 at 09:00 Gabapentin (Neurontin) 600 mg TID PO Last administered on 06/08/18 20:34; Start 06/08/18 at 14:00 Pantoprazole Sodium (Protonix) 40 mg DAILYAC PO Last administered on 06/09/18 07:35; Start 06/08/18 at 11:00 Pramipexole Dihydrochloride (miraPEX) 0.25 mg QHS PO Last administered on 20:34; Start 06/08/18 at 21:00 Acetaminophen (Tylenol) 1,000 mg PRN Q6HRS PRN PO pain Last administered on at 16:40; Start 06/08/18 at 11:00 Albuterol Sulfate (Ventolin Neb Soln) 2.5 mg RTQID NEB Last administered on at 07:42; Start 06/08/18 at 12:00 Furosemide (Lasix) 20 mg 1X ONCE IVP Last administered on 06/08/18at 11:21; Start 06/08/18 at 11:15; Stop 06/08/18 at 11:16; Status DC Potassium Chloride (Klor-Con) 20 meq DAILYWBKFT PO Last administered on at 07:36; Start 06/08/18 at 11:15 Methylprednisolone Sodium Succinate (SOLU-Medrol 40MG VIAL) 60 mg DAILY IV Last administered on 06/08/18at 12:29; Start 06/08/18 at 12:30 Albuterol Sulfate (Ventolin Neb Soln) 2.5 mg PRN Q4HRS PRN NEB SHORTNESS OF BREATH; Start 06/09/18 at 08:00 Active Scripts Active Advair 500-50 Diskus (Fluticasone/Salmeterol) 1 Each Disk.w.dev 1 Puff IH BID Reported Mirapex (Pramipexole Di-Hcl) 0.25 Mg Tablet 1 Tab PO QHS Xanax (Alprazolam) 0.5 Mg Tablet 1 Tab PO DAILY Proair Hfa Inhaler (Albuterol Sulfate) 8.5 Gm Hfa.aer.ad 1 Puff INH PRN Q6HRS PRN Baclofen 20 Mg Tablet 1 Tab PO TID Cyclobenzaprine Hcl 5 Mg Tablet 1 Tab PO BID Protonix (Pantoprazole Sodium) 20 Mg Tablet.dr 40 Mg PO DAILY Cardizem Tablet (Diltiazem Hcl) 30 Mg Tablet 30 Mg PO QID Lexapro (Escitalopram Oxalate) 20 Mg Tablet 1 Tab PO DAILY Xarelto (Rivaroxaban) 15 Mg Tablet 15 Mg PO DAILY Gabapentin 600 Mg Tablet 600 Mg PO TID Vitals/I & O Vital Sign - Last 24 Hours 06/08/18 06/08/18 06/08/18 06/08/18 08:50 09:00 10:00 11:00 Pulse 119 124 114 Resp 24 22 22 B/P (MAP) 111/58 (75) 111/52 (71) 119/59 (79) Pulse Ox 99 100 99 100 O2 Delivery Room Air Room Air Room Air Room Air 06/08/18 06/08/18 06/08/18 06/08/18 11:21 12:00 12:00 12:19 Temp 99.0 99.0 Pulse 112 112 Resp 24 B/P (MAP) 119/59 119/60 (79) Pulse Ox 100 100 O2 Delivery Room Air Room Air Room Air 06/08/18 06/08/18 06/08/18 06/08/18 13:00 14:00 15:00 16:00 Temp 98.9 98.9 Pulse 113 111 106 110 Resp 22 20 20 18 B/P (MAP) 104/57 (73) 100/66 (77) 102/63 (76) 106/56 (73) Pulse Ox 100 100 100 100 O2 Delivery Room Air Room Air Room Air Room Air 06/08/18 06/08/18 06/08/18 06/08/18 16:00 16:18 17:00 17:33 Pulse 110 110 Resp 20 B/P (MAP) 124/66 (85) 124/66 Pulse Ox 98 100 O2 Delivery Room Air Room Air Room Air 06/08/18 06/08/18 06/08/18 06/08/18 18:00 19:00 19:33 20:00 Temp 98.7 98.7 Pulse 112 110 102 Resp 22 22 22 B/P (MAP) 104/71 (82) 113/72 (86) Pulse Ox 100 100 98 100 O2 Delivery Room Air Room Air Room Air Room Air 06/08/18 06/08/18 06/08/18 06/08/18 20:00 20:36 21:00 22:00 Pulse 103 92 92 Resp 22 22 B/P (MAP) 113/72 108/60 (76) 108/70 (83) Pulse Ox 100 100 O2 Delivery Room Air Room Air Room Air 06/08/18 06/08/18 06/08/18 06/09/18 23:00 23:59 23:59 01:00 Temp 98.9 98.9 Pulse 87 90 91 Resp 22 22 22 B/P (MAP) 110/59 (76) 103/69 (80) 111/4 (39) Pulse Ox 100 97 99 O2 Delivery Room Air Room Air Room Air Room Air 06/09/18 06/09/18 06/09/18 06/09/18 02:00 03:00 04:00 04:00 Temp 98.8 98.8 Pulse 90 86 86 Resp 22 22 22 B/P (MAP) 111/76 (88) 105/81 (89) 115/80 (92) Pulse Ox 96 96 97 O2 Delivery Room Air Room Air Room Air Room Air 06/09/18 06/09/18 06/09/18 05:00 06:00 07:43 Pulse 88 82 Resp 16 16 B/P (MAP) 120/80 (93) 117/71 (86) Pulse Ox 98 98 96 O2 Delivery Room Air Room Air Room Air Intake and Output 06/08/18 06/08/18 06/09/18 15:00 23:00 07:00 Intake Total 1400 ml 1184 ml Output Total 2310 ml 510 ml 365 ml Balance -910 ml 674 ml -365 ml ABEL RIVAS MD Jun 09, 2018 08:28
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
[2018-06-09] MEDS: methylPREDNISolone SOD SUCC PF 125 MG/2 ML VIAL. IV SCH ×3 (09:00→21:11)
[2018-06-09] MEDS: dilTIAZem HCL 30 MG TABLET PO SCH (09:00)
[2018-06-09] MEDS: BACLOFEN 10 MG TABLET. PO SCH ×3 (09:12→21:08)
[2018-06-09] MEDS: GABAPENTIN 300 MG CAPSULE. PO SCH ×3 (09:12→21:13)
[2018-06-09] MEDS: CITALOPRAM 20 MG TABLET. PO SCH (09:13)
[2018-06-09] MEDS: CYCLOBENZAPRINE 10 MG TABLET. PO SCH ×2 (09:14→21:08)
[2018-06-09] MEDS ORDERED: POTASSIUM CHLORIDE 20 MEQ TABLET.ER. PO ONE (09:15)
[2018-06-09] MEDS ORDERED: MAGNESIUM SULFATE 2GM 50 ML IV ONE (09:15)
[2018-06-09 09:19] LABS: CALCIUM 7.7 mg/dL (8.5-10.1); CREATININE 0.7 mg/dL (0.6-1.0); GFR 109.5; MAGNESIUM 2.4 mg/dL (1.8-2.4); POTASSIUM 4.3 mmol/L (3.5-5.1)
[2018-06-09 09:26] LABS: CHOLESTEROL/HDL RATIO 4.5
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
--- NOTE | 2018-06-09 10:02 | CARD ---
MR#: [id number] Date of Study: 06/09/2018 Ordering Physician: NANCY BEDOLLA, Referring Physician: ABEL RIVAS Tech: Domonique Liao RDCS APPROVED REPORT EXAM: Two-dimensional and M-mode echocardiogram with Doppler and color Doppler. Other Information Quality : Good INDICATION Tachycardia 2D DIMENSIONS RVDd2.6 (2.9-3.5cm)Left Atrium(2D)3.7 (1.6-4.0cm) IVSd0.8 (0.7-1.1cm)Aortic Root(2D)2.7 (2.0-3.7cm) LVDd5.1 (3.9-5.9cm)LVOT Diameter2.2 (1.8-2.4cm) PWd0.8 (0.7-1.1cm)LVDs3.2 (2.5-4.0cm) FS (%) 30.0 %SV81.2 ml LVEF(%)60.0 (>50%) Aortic Valve AoV Peak King.153.0cm/sAoV VTI25.6cm AO Peak GR.9.4mmHgLVOT VTI 19.87cm AO Mean GR.5mmHgAVA (VTI)2.90cm2 Mitral Valve MV E Unygjcjv231.9cm/sMV DECEL [id number] MV A Ylkvpxpf31.4cm/sE/A Ratio1.4 TDI Lateral E' P. V14.74cm/sMedial E' P. V11.97cm/s E/Lateral E'8.6E/Medial E'10.6 Tricuspid Valve TR P. Tsihhrcq862es/sRAP [id number] TR Peak Gr.27npZzCPIO67rzUd Pulmonary Vein S1 Snrpialo42.0cm/sS2 Jrznwtpu84.23cm/s D2 Wvzqfumn60.2cm/s LEFT VENTRICLE The left ventricle is normal size. There is normal left ventricular wall thickness. The left ventricu lar systolic function is normal. The Ejection Fraction is 55-60%. There is normal LV segmental wall m otion. The left ventricular diastolic function and filling is normal for age. RIGHT VENTRICLE The right ventricle is normal size. The right ventricular systolic function is normal. ATRIA The left atrium size is normal. The right atrium size is normal. The interatrial septum is intact wit h no evidence for an atrial septal defect or patent foramen ovale as noted on 2-D or Doppler imaging. Injection of bubbles documented no interatrial shunt. AORTIC VALVE The aortic valve is normal in structure and function. Doppler and Color Flow revealed no significant aortic regurgitation. There is no significant aortic valvular stenosis. MITRAL VALVE The mitral valve is normal in structure and function. There is no evidence of mitral valve prolapse. There is no mitral valve stenosis. Doppler and Color-flow revealed mild mitral regurgitation. TRICUSPID VALVE The tricuspid valve is normal in structure and function. Doppler and Color Flow revealed moderate tri cuspid regurgitation. There is moderate pulmonary hypertension. The PA pressure was estimated at 53 m mHg. There is no tricuspid valve stenosis. PULMONIC VALVE The pulmonic valve is not well visualized. Doppler and Color Flow revealed trace pulmonic valvular re gurgitation. There is no pulmonic valvular stenosis. GREAT VESSELS The aortic root is normal in size. The ascending aorta is normal in size. The IVC is dilated and nena apses >50% with inspiration. PERICARDIAL EFFUSION There is no evidence of significant pericardial effusion. Critical Notification Critical Value: No <Conclusion> The left ventricular systolic function is normal. The Ejection Fraction is 55-60%. There is normal LV segmental wall motion. Mild mitral regurgitation. Moderate tricuspid regurgitation. There is moderate pulmonary hypertension. The PA pressure was estimated at 53 mmHg. There is no evidence of significant pericardial effusion. Signed by : Ke Hirsch, Electronically Approved : 06/09/2018 10:01:59
[2018-06-09] MEDS: VANCOMYCIN 1.5 GM in IV NORMAL SALINE 500ML BAG 500 ML IV SCH ×2 (10:32→23:00)
[2018-06-09] MEDS: INSULIN LISPRO 300 UNITS/3 ML INSULN.PEN. SQ SCH ×2 (12:53→18:01)
[2018-06-09] MEDS: VANCOMYCIN PER PHARMACY MC PRN ×2 (12:54→12:56)
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
--- NOTE | 2018-06-09 15:08 | NUR ---
SS following for discharge planning. SS reviewed pt chart. Pt is from home with daughter and is currently on room air. PT evaluated and recommended home at discharge. No discharge needs noted at this time. SS will continue to follow for pending discharge needs.
[2018-06-09] MEDS: PRAMIPEXOLE 0.25 MG TABLET. PO SCH (21:08)
[2018-06-09 23:24] LABS: VANC TR 5.8 mcg/mL (10.0-20.0)
[2018-06-09] MEDS: ALBUTEROL SULFATE 2.5 MG/3 ML NEBU. NEB PRN (23:30)
[2018-06-10] MEDS: VANCOMYCIN PER PHARMACY MC PRN (00:29)
--- NOTE | 2018-06-10 00:32 | NUR ---
Pharmacy Vancomycin Dosing Note S: Consulted to monitor and dose vancomycin started 06/07/18. O: ADONIS PIMENTEL is a 43 year old F with Sepsis Pneumonia . Other Antibiotics: ZOSYN 3.375G IV Q6HRS LABS: Last BUN: 12 Last Creatinine: 0.7 Creatinine Clearance: >100 (124) mL/min Last WBC: 13.1 Last Platelets: Tmax (past 24 hours): 99.0 Microbiology: 06/09 BCX NGTD I/O: 5672/1024 Drug Levels: Last Trough level: on 06/09/18 at 2305 Last dose given 06/09/18 at 1030 Vancomycin Dosing: Dosing Weight: Actual Target Trough: 15-20 A: Based on: Trough, Updated Actual Wt and Improved CrCl P: 1. 06/10/18 0000 Increased Vancomycin 1500 mg IV q8h 2. Follow up Trough level on 06/10/18 at 2330 3. Pharmacy will continue to monitor, follow and adjust therapy as needed. PEYTON PAYNE RPH, 06/10/18 0033 Signed: 06/10/18 at 0034 by PEYTON PAYNE RPH PHA
[2018-06-10 03:54] VITALS: BP 127/100
[2018-06-10] MEDS: PIPERACILLIN/TAZOBACTAM 3.375 GM in IV NORMAL SALINE 50ML 50 ML IV SCH ×3 (06:00)
[2018-06-10] MEDS: methylPREDNISolone SOD SUCC PF 125 MG/2 ML VIAL. IV SCH (06:00)
[2018-06-10] MEDS: ALBUTEROL SULFATE 2.5 MG/3 ML NEBU. NEB SCH ×4 (06:05→19:39)
[2018-06-10 06:58] LABS: HEMATOCRIT 23.3 % (36.0-47.0); HEMOGLOBIN 7.2 g/dL (12.0-15.5); RED BLOOD COUNT 2.97 x10^6/uL (3.50-5.40); RED CELL DISTRIBUTION WIDTH 21.7 % (11.5-14.5); WHITE BLOOD COUNT 19.2 x10^3/uL (4.0-11.0)
[2018-06-10 07:00] VITALS: BP 122/76
[2018-06-10 07:06] LABS: CALCIUM 8.2 mg/dL (8.5-10.1); CREATININE 0.7 mg/dL (0.6-1.0); GFR 109.5
[2018-06-10] MEDS: PANTOPRAZOLE 40 MG TABLET.DR. PO SCH (07:49)
[2018-06-10] MEDS: CITALOPRAM 20 MG TABLET. PO SCH (08:23)
[2018-06-10] MEDS: BACLOFEN 10 MG TABLET. PO SCH ×3 (08:23→21:05)
[2018-06-10] MEDS: GABAPENTIN 300 MG CAPSULE. PO SCH ×3 (08:23→21:05)
[2018-06-10] MEDS: CYCLOBENZAPRINE 10 MG TABLET. PO SCH ×2 (08:24→21:05)
[2018-06-10] MEDS: POTASSIUM CHLORIDE 20 MEQ TABLET.ER. PO SCH (08:24)
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
[2018-06-10] MEDS: VANCOMYCIN 1.5 GM in IV NORMAL SALINE 500ML BAG 500 ML IV SCH ×3 (08:25)
[2018-06-10] MEDS: INSULIN LISPRO 300 UNITS/3 ML INSULN.PEN. SQ SCH ×3 (08:33→17:56)
[2018-06-10] MEDS: IRON SUCROSE COMPLEX 300 MG in IV NORMAL SALINE 250ML 250 ML IV SCH (09:00)
[2018-06-10] MEDS: diphenhydrAMINE HCL 25 MG CAPSULE PO SCH ×2 (09:00→09:40)
[2018-06-10] MEDS: ACETAMINOPHEN 325 MG TABLET. PO SCH (09:40)
[2018-06-10] MEDS ORDERED: predniSONE 10 MG TABLET PO SCH (09:45)
--- NOTE | 2018-06-10 09:53 | PDOC ---
SUBJECTIVE Subjective Pt states that she is feeling better. She is having a productive cough with yellow sputum but breathing overall has improved. OBJECTIVE Vital Signs Vital Signs Date Time Temp Pulse Resp B/P (MAP) Pulse Ox O2 Delivery O2 Flow Rate FiO2 06/10/18 08:24 94 122/76 06/10/18 07:00 98.0 94 18 122/76 (91) 97 Room Air 98.0 06/10/18 06:06 98 Room Air 06/10/18 03:54 98.1 94 20 127/100 (109) 98 Room Air 98.1 06/09/18 23:31 98 Room Air 06/09/18 23:17 98.8 95 20 117/73 (88) 97 Room Air 98.8 06/09/18 20:28 97 Room Air 06/09/18 20:00 Room Air 06/09/18 19:45 98.2 110 22 135/82 (99) 96 Room Air 98.2 06/09/18 15:47 97 Room Air 06/09/18 14:31 97.9 107 20 128/76 (93) 96 Room Air 97.9 06/09/18 13:34 97.9 107 20 128/76 (93) 96 Room Air 97.9 06/09/18 11:49 98 Room Air I & O Intake and Output 06/10/18 06:59 Intake Total 1391 ml Output Total 1475 ml Balance -84 ml Intake Oral 1185 ml IV Total 206 ml Output Urine Total 1475 ml # Voids 1 # Bowel Movements 1 PHYSICAL EXAM Physical Exam GEN: NAD, AOx3 HEENT: MMM, EOMI, no scleral icterus/injection Cardiac: RRR, no M/R/G Lungs: rhonchi in bases bilaterally Abd: soft, non distended, NTTP Ext: no erythema/edema LE bilaterally Neuro: CN2-12 GI ASSESSMENT/PLAN Assessment/Plan Pt is a 43yo AAF admitted for sepsis and anemia 1. Sepsis with pneumonia and AE asthma - stable, afebrile, no hypoxia on RA. Improving. Will attempt to deescalate to oral antibiotics. Will attempt to change to po Prednisone. Continue nebs. 2. profound anemia - Hgb improving, Hematology following. Think just related to iron deficiency anemia. Pt getting iron transfusions today and tomorrow. 3. tachycardia - resolved, Cardiology has seen. 4. s/p left leg fracture - PT and OT ordered to help maintain mobility. 5. chronic anxiety - stable, continue home medication. 6. DM2 - has been diet-controlled. May have some hyperglycemia with increase in Solumedrol, SS ordered. 7. Hx of PE- pt's Xarelto was stopped this admission. Had PE in September. Pt still has not gotten her repeat CT Chest. Will order now. 9. Leukocytosis- likely 2/2 steroids, CTM COMMENT Lab Laboratory Tests Test 06/09/18 12:20 06/09/18 12:46 06/09/18 17:09 06/09/18 20:22 Haptoglobin 357 mg/dL (34-200) Glucose (Fingerstick) 225 mg/dL (70-99) 278 mg/dL (70-99) 283 mg/dL (70-99) Test 06/09/18 23:05 06/10/18 06:30 06/10/18 07:17 Vancomycin Level Trough 5.8 mcg/mL (10.0-20.0) Vancomycin Last Dose Date Unk Vancomycin Last Dose Time Unk White Blood Count 19.2 x10^3/uL (4.0-11.0) Red Blood Count 2.97 x10^6/uL (3.50-5.40) Hemoglobin 7.2 g/dL (12.0-15.5) Hematocrit 23.3 % (36.0-47.0) Mean Corpuscular Volume 78 fL (79-100) Mean Corpuscular Hemoglobin 24 pg (25-35) Mean Corpuscular Hemoglobin Concent 31 g/dL (31-37) Red Cell Distribution Width 21.7 % (11.5-14.5) Platelet Count 287 x10^3/uL (140-400) Sodium Level 141 mmol/L (136-145) Potassium Level 4.0 mmol/L (3.5-5.1) Chloride Level 107 mmol/L (98-107) Carbon Dioxide Level 24 mmol/L (21-32) Anion Gap 10 (6-14) Blood Urea Nitrogen 12 mg/dL (7-20) Creatinine 0.7 mg/dL (0.6-1.0) Estimated GFR (Cockcroft-Gault) 109.5 Glucose Level 186 mg/dL (70-99) Calcium Level 8.2 mg/dL (8.5-10.1) Procalcitonin 7.40 ng/mL (0.00-0.10) Glucose (Fingerstick) 169 mg/dL (70-99) ANGELITA LABOY MD Jun 10, 2018 09:53
--- NOTE | 2018-06-10 10:02 | NUR ---
prednisone PO held this morning, patient received IV solumedrol at 0600.
[2018-06-10] MEDS ORDERED: IOHEXOL 350 MG/ML 100 ML VIAL. IV ONE (10:45)
[2018-06-10 11:00] VITALS: BP 124/81
--- NOTE | 2018-06-10 13:02 | RAD ---
Chest CTA History: Pulmonary embolism on outside facility exam, status post knee surgery Technique: After bolus of intravenous contrast, CT imaging was performed of the chest. Multiplanar reconstruction images to include MIP reconstruction images are submitted. Exposure: One or more of the following individualized dose reduction techniques were utilized for this examination: 1. Automated exposure control 2. Adjustment of the mA and/or kV according to patient size 3. Use of iterative reconstruction technique. Comparison: None available Findings: [There is some motion degradation.] There are some small pulmonary emboli in left lower lobe branches, no embolism of the main pulmonary arteries. There are very small dependent pleural effusions bilaterally. There is prominent right lower lobe infiltrate, to lesser degree of the left lower lobe. There is moderate to large hiatal hernia containing majority of the stomach, adjacent compressive atelectasis left lower lobe. There is mediastinal lymphadenopathy, precarinal node about 1.1 cm short axis dimension and subcarinal node about 1 cm short axis dimension. There are also hilar nodes right greater than left, largest on the right about 1.1 cm short axis dimension. There is no pneumothorax. Thoracic aortic caliber is within normal limits, no intraluminal flap. Heart is somewhat enlarged. There is likely hepatic steatosis. There is right internal jugular venous catheter. Impression: 1. There are small pulmonary emboli in left lower lobe branches. 2. There are small dependent pleural effusions bilaterally. There is prominent right lower lobe infiltrate, to lesser degree on the left for which follow-up after treatment advised. 3. There is moderate to large hiatal hernia containing most of the stomach, compressive atelectasis of left lower lobe. 4. There is nonspecific mediastinal and right greater than left hilar lymphadenopathy. 5. There is hepatic steatosis. Electronically signed by: Buck Castañeda MD (06/10/2018 12:59 PM) [id number]
[2018-06-10 15:00] VITALS: BP 101/71
[2018-06-10 19:30] VITALS: BP 130/77
[2018-06-10] MEDS: PRAMIPEXOLE 0.25 MG TABLET. PO SCH (21:05)
[2018-06-10 23:09] VITALS: BP 122/87
[2018-06-10] MEDS: ALBUTEROL SULFATE 2.5 MG/3 ML NEBU. NEB PRN (23:41)
[2018-06-11 03:26] VITALS: BP 128/79
[2018-06-11 06:31] LABS: BASO # 0.1 x10^3/uL (0.0-0.2); BASO % 0 % (0-3); EOS # 0.4 x10^3/uL (0.0-0.7); EOS % 2 % (0-3); HEMATOCRIT 22.6 % (36.0-47.0); HEMOGLOBIN 7.1 g/dL (12.0-15.5); LYMPH # 1.6 x10^3/uL (1.0-4.8); LYMPH % 7 % (24-48); MEAN CORPUSCULAR HEMOGLOBIN 24 pg (25-35); MEAN CORPUSCULAR HGB CONC 31 g/dL (31-37); MEAN CORPUSCULAR VOLUME 78 fL (79-100); MONO # 2.6 x10^3/uL (0.0-1.1); MONO % 11 % (0-9); NEUT # 18.7 x10^3uL (1.8-7.7); NEUT % 80 % (31-73); PLATELET COUNT 294 x10^3/uL (140-400); RED CELL DISTRIBUTION WIDTH 22.6 % (11.5-14.5); WHITE BLOOD COUNT 23.3 x10^3/uL (4.0-11.0)
[2018-06-11 07:00] VITALS: BP 127/75
[2018-06-11 07:09] LABS: CALCIUM 8.3 mg/dL (8.5-10.1); CREATININE 0.8 mg/dL (0.6-1.0); GFR 93.9; POTASSIUM 3.8 mmol/L (3.5-5.1)
[2018-06-11] MEDS: ALBUTEROL SULFATE 2.5 MG/3 ML NEBU. NEB SCH ×4 (07:28→21:40)
[2018-06-11] MEDS ORDERED: RIVAROXABAN 15 MG TABLET. PO SCH (07:45)
[2018-06-11] MEDS: ACETAMINOPHEN 325 MG TABLET. PO SCH (07:45)
[2018-06-11] MEDS: POTASSIUM CHLORIDE 20 MEQ TABLET.ER. PO SCH (07:46)
[2018-06-11] MEDS: PANTOPRAZOLE 40 MG TABLET.DR. PO SCH (07:46)
[2018-06-11] MEDS: diphenhydrAMINE HCL 25 MG CAPSULE PO SCH (07:51)
[2018-06-11] MEDS: INSULIN LISPRO 300 UNITS/3 ML INSULN.PEN. SQ SCH ×3 (07:54→17:13)
--- NOTE | 2018-06-11 07:57 | PDOC ---
SUBJECTIVE Subjective Pt is feeling worse this morning. Still having a productive cough with yellow sputum. Feels that her wheezing and chest tightness has worsened. Feels weak and tired this morning. Pt's antibiotics and steroids were changed from IV to po yesterday; will change steroids back to IV. Pt's CT chest showed persistent PE; will resume pt's Xarelto and will consult pulmonary OBJECTIVE Vital Signs Vital Signs Date Time Temp Pulse Resp B/P (MAP) Pulse Ox O2 Delivery O2 Flow Rate FiO2 06/11/18 07:28 97 Room Air 06/11/18 07:00 98.0 89 18 127/75 (92) 95 Room Air 98.0 06/11/18 03:26 98.7 87 18 128/79 (95) 95 Room Air 98.7 06/10/18 23:41 Room Air 06/10/18 23:09 98.1 83 18 122/87 (99) 95 Room Air 98.1 06/10/18 20:00 Room Air 06/10/18 19:30 98.3 90 18 130/77 (94) 95 Room Air 98.3 06/10/18 19:29 96 Room Air 06/10/18 15:00 98.1 95 18 101/71 (81) 95 Room Air 98.1 06/10/18 14:52 95 Room Air 06/10/18 11:00 98.6 94 18 124/81 (95) 95 Room Air 98.6 06/10/18 10:50 Room Air 06/10/18 08:24 94 122/76 06/10/18 08:00 Room Air I & O Intake and Output 06/11/18 06:59 Intake Total 1100 ml Output Total 2000 ml Balance -900 ml Intake Oral 1100 ml Output Urine Total 2000 ml PHYSICAL EXAM Physical Exam GEN: NAD, AOx3 HEENT: MMM, EOMI, no scleral icterus/injection Cardiac: tachycardic, regular rhythm, no M/R/G Lungs: CTAB, regular breathing rate and effort Abd: soft, non distended, NTTP Ext: 2+ pitting edema LE bilaterally Neuro: CN2-12 GI ASSESSMENT/PLAN Assessment/Plan Pt is a 43yo AAF admitted for sepsis and anemia 1. Sepsis with pneumonia and AE asthma - afebrile, no hypoxia on RA. Pt was feeling better yesterday so abx and steroids were changed from IV to po. Will change back to IV steroids for now and will have pulmonary evaluate pt as well. Pt currently receiving pneumonia. Continue nebs. 2. Persistent PE- pt's Xarelto was stopped on admission, repeat CT chest obtained. Will resume pt's Xarelto. Pt's PE was in September. 3. Pulmonary HTN 4. profound anemia - Hgb stable, Hematology following. Think just related to iron deficiency anemia. Pt received iron transfusion yesterday and will get another today 5. s/p left leg fracture - PT and OT ordered to help maintain mobility. 6. chronic anxiety - stable, continue home medication. 7. DM2 - has been diet-controlled. May have some hyperglycemia with increase in Solumedrol, SS ordered. 8. Leukocytosis- likely 2/2 steroids, CTM COMMENT Lab Laboratory Tests Test 06/10/18 12:11 06/10/18 17:09 06/10/18 20:24 06/11/18 06:26 Glucose (Fingerstick) 215 mg/dL (70-99) 265 mg/dL (70-99) 220 mg/dL (70-99) White Blood Count 23.3 x10^3/uL (4.0-11.0) Red Blood Count 2.90 x10^6/uL (3.50-5.40) Hemoglobin 7.1 g/dL (12.0-15.5) Hematocrit 22.6 % (36.0-47.0) Mean Corpuscular Volume 78 fL (79-100) Mean Corpuscular Hemoglobin 24 pg (25-35) Mean Corpuscular Hemoglobin Concent 31 g/dL (31-37) Red Cell Distribution Width 22.6 % (11.5-14.5) Platelet Count 294 x10^3/uL (140-400) Neutrophils (%) (Auto) 80 % (31-73) Lymphocytes (%) (Auto) 7 % (24-48) Monocytes (%) (Auto) 11 % (0-9) Eosinophils (%) (Auto) 2 % (0-3) Basophils (%) (Auto) 0 % (0-3) Neutrophils # (Auto) 18.7 x10^3uL (1.8-7.7) Lymphocytes # (Auto) 1.6 x10^3/uL (1.0-4.8) Monocytes # (Auto) 2.6 x10^3/uL (0.0-1.1) Eosinophils # (Auto) 0.4 x10^3/uL (0.0-0.7) Basophils # (Auto) 0.1 x10^3/uL (0.0-0.2) Sodium Level 142 mmol/L (136-145) Potassium Level 3.8 mmol/L (3.5-5.1) Chloride Level 107 mmol/L (98-107) Carbon Dioxide Level 27 mmol/L (21-32) Anion Gap 8 (6-14) Blood Urea Nitrogen 12 mg/dL (7-20) Creatinine 0.8 mg/dL (0.6-1.0) Estimated GFR (Cockcroft-Gault) 93.9 Glucose Level 137 mg/dL (70-99) Calcium Level 8.3 mg/dL (8.5-10.1) Test 06/11/18 07:27 Glucose (Fingerstick) 111 mg/dL (70-99) ANGELITA LABOY MD Jun 11, 2018 07:57
[2018-06-11] MEDS ORDERED: FUROSEMIDE 40 MG/4 ML VIAL. IVP ONE (08:00)
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
[2018-06-11] MEDS: methylPREDNISolone SOD SUCC PF 40 MG/ML VIAL. IV SCH ×3 (08:54→21:33)
[2018-06-11] MEDS: CYCLOBENZAPRINE 10 MG TABLET. PO SCH ×2 (08:55→21:33)
[2018-06-11] MEDS: IRON SUCROSE COMPLEX 300 MG in IV NORMAL SALINE 250ML 250 ML IV SCH (08:55)
[2018-06-11] MEDS: GABAPENTIN 300 MG CAPSULE. PO SCH ×3 (08:55→21:32)
[2018-06-11] MEDS: CITALOPRAM 20 MG TABLET. PO SCH (08:56)
[2018-06-11] MEDS: BACLOFEN 10 MG TABLET. PO SCH ×3 (08:56→21:33)
[2018-06-11] MEDS: BENZONATATE 100 MG CAPSULE. PO SCH ×3 (08:58→21:32)
[2018-06-11 09:04] LABS: % BANDS 9 % (0-9); % EOS 3 % (0-5); % LYMPHS 8 % (24-48); % METAS 5 % (0-0); % MONOS 10 % (0-10); % SEGS 65 % (35-66); NUCLEATED RBC 7
[2018-06-11 09:17] LABS: ANISOCYTOSIS MOD; PLT ESTIMATE ADEQUATE (ADEQUATE); POLYCHROMASIA PRESENT
[2018-06-11 09:18] LABS: HYPOCHROMIA SLIGHT; OVALOCYTES OCC; POIKILOCYTOSIS SLIGHT
[2018-06-11] MEDS: ACETAMINOPHEN 500 MG TABLET PO PRN (14:22)
--- NOTE | 2018-06-11 14:51 | NUR ---
SW following. No SW needs noted at this time. Will continue to follow.
--- NOTE | 2018-06-11 15:19 | PDOC ---
PULMONARY PROGRESS NOTES Vitals Vital Signs Date Time Temp Pulse Resp B/P (MAP) Pulse Ox O2 Delivery O2 Flow Rate FiO2 06/11/18 11:02 Room Air 06/11/18 08:56 89 127/75 06/11/18 07:28 97 06/11/18 07:00 98.0 18 98.0 Labs Laboratory Tests Test 06/09/18 17:09 06/09/18 20:22 06/09/18 23:05 06/10/18 06:30 Glucose (Fingerstick) 278 mg/dL (70-99) 283 mg/dL (70-99) Vancomycin Level Trough 5.8 mcg/mL (10.0-20.0) Vancomycin Last Dose Date Unk Vancomycin Last Dose Time Unk White Blood Count 19.2 x10^3/uL (4.0-11.0) Red Blood Count 2.97 x10^6/uL (3.50-5.40) Hemoglobin 7.2 g/dL (12.0-15.5) Hematocrit 23.3 % (36.0-47.0) Mean Corpuscular Volume 78 fL (79-100) Mean Corpuscular Hemoglobin 24 pg (25-35) Mean Corpuscular Hemoglobin Concent 31 g/dL (31-37) Red Cell Distribution Width 21.7 % (11.5-14.5) Platelet Count 287 x10^3/uL (140-400) Sodium Level 141 mmol/L (136-145) Potassium Level 4.0 mmol/L (3.5-5.1) Chloride Level 107 mmol/L (98-107) Carbon Dioxide Level 24 mmol/L (21-32) Anion Gap 10 (6-14) Blood Urea Nitrogen 12 mg/dL (7-20) Creatinine 0.7 mg/dL (0.6-1.0) Estimated GFR (Cockcroft-Gault) 109.5 Glucose Level 186 mg/dL (70-99) Calcium Level 8.2 mg/dL (8.5-10.1) Procalcitonin 7.40 ng/mL (0.00-0.10) Test 06/10/18 07:17 06/10/18 12:11 06/10/18 17:09 06/10/18 20:24 Glucose (Fingerstick) 169 mg/dL (70-99) 215 mg/dL (70-99) 265 mg/dL (70-99) 220 mg/dL (70-99) Test 06/11/18 06:26 06/11/18 07:27 06/11/18 11:56 White Blood Count 23.3 x10^3/uL (4.0-11.0) Red Blood Count 2.90 x10^6/uL (3.50-5.40) Hemoglobin 7.1 g/dL (12.0-15.5) Hematocrit 22.6 % (36.0-47.0) Mean Corpuscular Volume 78 fL (79-100) Mean Corpuscular Hemoglobin 24 pg (25-35) Mean Corpuscular Hemoglobin Concent 31 g/dL (31-37) Red Cell Distribution Width 22.6 % (11.5-14.5) Platelet Count 294 x10^3/uL (140-400) Neutrophils (%) (Auto) 80 % (31-73) Lymphocytes (%) (Auto) 7 % (24-48) Monocytes (%) (Auto) 11 % (0-9) Eosinophils (%) (Auto) 2 % (0-3) Basophils (%) (Auto) 0 % (0-3) Neutrophils # (Auto) 18.7 x10^3uL (1.8-7.7) Lymphocytes # (Auto) 1.6 x10^3/uL (1.0-4.8) Monocytes # (Auto) 2.6 x10^3/uL (0.0-1.1) Eosinophils # (Auto) 0.4 x10^3/uL (0.0-0.7) Basophils # (Auto) 0.1 x10^3/uL (0.0-0.2) Segmented Neutrophils % 65 % (35-66) Band Neutrophils % 9 % (0-9) Lymphocytes % 8 % (24-48) Monocytes % 10 % (0-10) Eosinophils % 3 % (0-5) Metamyelocytes % 5 % (0-0) Nucleated Red Blood Cells 7 Platelet Estimate Adequate (ADEQUATE) Polychromasia Present Hypochromasia Slight Poikilocytosis Slight Basophilic Stippling Present Anisocytosis Mod Ovalocytes Occ Sodium Level 142 mmol/L (136-145) Potassium Level 3.8 mmol/L (3.5-5.1) Chloride Level 107 mmol/L (98-107) Carbon Dioxide Level 27 mmol/L (21-32) Anion Gap 8 (6-14) Blood Urea Nitrogen 12 mg/dL (7-20) Creatinine 0.8 mg/dL (0.6-1.0) Estimated GFR (Cockcroft-Gault) 93.9 Glucose Level 137 mg/dL (70-99) Calcium Level 8.3 mg/dL (8.5-10.1) Glucose (Fingerstick) 111 mg/dL (70-99) 165 mg/dL (70-99) Laboratory Tests Test 06/10/18 17:09 06/10/18 20:24 06/11/18 06:26 06/11/18 07:27 Glucose (Fingerstick) 265 mg/dL (70-99) 220 mg/dL (70-99) 111 mg/dL (70-99) White Blood Count 23.3 x10^3/uL (4.0-11.0) Red Blood Count 2.90 x10^6/uL (3.50-5.40) Hemoglobin 7.1 g/dL (12.0-15.5) Hematocrit 22.6 % (36.0-47.0) Mean Corpuscular Volume 78 fL (79-100) Mean Corpuscular Hemoglobin 24 pg (25-35) Mean Corpuscular Hemoglobin Concent 31 g/dL (31-37) Red Cell Distribution Width 22.6 % (11.5-14.5) Platelet Count 294 x10^3/uL (140-400) Neutrophils (%) (Auto) 80 % (31-73) Lymphocytes (%) (Auto) 7 % (24-48) Monocytes (%) (Auto) 11 % (0-9) Eosinophils (%) (Auto) 2 % (0-3) Basophils (%) (Auto) 0 % (0-3) Neutrophils # (Auto) 18.7 x10^3uL (1.8-7.7) Lymphocytes # (Auto) 1.6 x10^3/uL (1.0-4.8) Monocytes # (Auto) 2.6 x10^3/uL (0.0-1.1) Eosinophils # (Auto) 0.4 x10^3/uL (0.0-0.7) Basophils # (Auto) 0.1 x10^3/uL (0.0-0.2) Segmented Neutrophils % 65 % (35-66) Band Neutrophils % 9 % (0-9) Lymphocytes % 8 % (24-48) Monocytes % 10 % (0-10) Eosinophils % 3 % (0-5) Metamyelocytes % 5 % (0-0) Nucleated Red Blood Cells 7 Platelet Estimate Adequate (ADEQUATE) Polychromasia Present Hypochromasia Slight Poikilocytosis Slight Basophilic Stippling Present Anisocytosis Mod Ovalocytes Occ Sodium Level 142 mmol/L (136-145) Potassium Level 3.8 mmol/L (3.5-5.1) Chloride Level 107 mmol/L (98-107) Carbon Dioxide Level 27 mmol/L (21-32) Anion Gap 8 (6-14) Blood Urea Nitrogen 12 mg/dL (7-20) Creatinine 0.8 mg/dL (0.6-1.0) Estimated GFR (Cockcroft-Gault) 93.9 Glucose Level 137 mg/dL (70-99) Calcium Level 8.3 mg/dL (8.5-10.1) Test 06/11/18 11:56 Glucose (Fingerstick) 165 mg/dL (70-99) Medications Active Scripts Medications Dose Route/Sig Max Daily Dose Days Date Category Advair 500-50 Diskus (Fluticasone/Salmeterol) 1 Each Disk.w.dev 1 Puff IH BID 06/08/18 Rx Mirapex (Pramipexole Di-Hcl) 0.25 Mg Tablet 1 Tab PO QHS 06/08/18 Reported Xanax (Alprazolam) 0.5 Mg Tablet 1 Tab PO DAILY 06/08/18 Reported Proair Hfa Inhaler (Albuterol Sulfate) 8.5 Gm Hfa.aer.ad 1 Puff INH PRN Q6HRS PRN 06/08/18 Reported Baclofen 20 Mg Tablet 1 Tab PO TID 06/08/18 Reported Cyclobenzaprine Hcl 5 Mg Tablet 1 Tab PO BID 06/08/18 Reported Protonix (Pantoprazole Sodium) 20 Mg Tablet.dr 40 Mg PO DAILY 06/08/18 Reported Cardizem Tablet (Diltiazem Hcl) 30 Mg Tablet 30 Mg PO QID 06/08/18 Reported Lexapro (Escitalopram Oxalate) 20 Mg Tablet 1 Tab PO DAILY 06/08/18 Reported Xarelto (Rivaroxaban) 15 Mg Tablet 15 Mg PO DAILY 06/08/18 Reported Gabapentin 600 Mg Tablet 600 Mg PO TID 06/08/18 Reported Impression . FULL CONSULT DICTATED THANKS SEE ORDERS WILL CHECK NOCT DESAT STUDY DOUBT SEC PUL HTN SEC TO CHRONIC EMBOLI JEREMI WINN MD Jun 11, 2018 15:19
[2018-06-11 19:20] VITALS: BP 143/87
[2018-06-11] MEDS: LACTOBACILLUS RHAMNOSUS GG 1 CAPSULE. PO SCH (21:32)
[2018-06-11] MEDS: APIXABAN 5 MG TABLET. PO SCH (21:32)
[2018-06-11] MEDS: PRAMIPEXOLE 0.25 MG TABLET. PO SCH (21:32)
[2018-06-11 23:29] VITALS: BP 141/87
[2018-06-12 03:24] VITALS: BP 142/86
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
[2018-06-12] MEDS: methylPREDNISolone SOD SUCC PF 40 MG/ML VIAL. IV SCH (05:31)
[2018-06-12 07:15] VITALS: BP 144/88
[2018-06-12] MEDS: ALBUTEROL SULFATE 2.5 MG/3 ML NEBU. NEB SCH ×3 (07:56→14:46)
--- NOTE | 2018-06-12 08:01 | PDOC3 ---
Discharge Summary Date of Admission: Jun 07, 2018 Date of Discharge: Jun 12, 2018 Follow-Up: Other (5-[address] Laoby, f/u with Dr. Martinez as well) Admitting Diagnosis comment: Severe anemia, sepsis 2/2 pneumonia FINAL DIAGNOSIS Sepsis 2/2 pneumonia, asthma exacerbation, severe anemia, recurrent PE, pulmonary HTN, hx left leg fracture, chronic anxiety, DM2, Leukocytosis Brief Hospital Course DISCHARGE PHYSICAL EXAM GEN: NAD, AOx3 HEENT: MMM, EOMI, no scleral icterus/injection Cardiac: tachycardic, regular rhythm, no M/R/G Lungs: dull on RLL, regular breathing rate and effort Abd: soft, non distended, NTTP Ext: 2+ pitting edema LE bilaterally Neuro: CN2-12 GI Pt is a 43yo AAF admitted for sepsis and anemia- pt feeling much better today and would prefer to go home as opposed to SNF 1. Sepsis with pneumonia and AE asthma - afebrile, no hypoxia on RA. Pt currently on Levaquin and IV steroids. Will D/C on prednisone taper. 2. Persistent PE- pt's Xarelto was stopped on admission, repeat CT chest obtained which shows apparently new PE on the left. Pt's xarelto initially resumed and then switched to eliquis by Heme. Pt will be getting repeat CT Chest in 6 months and f/u with Hematology. 3. Pulmonary HTN 4. profound anemia - Hgb stable, Hematology following. Think related to iron deficiency anemia. Pt is s/p 4 units PRBCs and iron transfusion this hospitalization. Continue Ferrous Sulfate outpatient. 5. s/p left leg fracture - PT and OT following during admission. 6. chronic anxiety - stable, continue home medication. 7. DM2 - has been diet-controlled. May have some hyperglycemia with increase in Solumedrol, had SSI during hospitalization 8. Leukocytosis- likely 2/2 steroids. Pt remains afebrile CONDITION AT DISCHARGE: Improved Discharge Medications Baclofen (Lioresal) 20 mg TID PO Last administered on 06/11/18at 21:33; Start at 14:00 Cyclobenzaprine HCl (Flexeril) 5 mg BID PO Last administered on 06/11/18at 21:33 ; Start 06/08/18 at 11:00 Gabapentin (Neurontin) 600 mg TID PO Last administered on 06/11/18 21:32; Start 06/08/18 at 14:00 Pantoprazole Sodium (Protonix) 40 mg DAILYAC PO Last administered on 06/11/18 07:46; Start 06/08/18 at 11:00 Pramipexole Dihydrochloride (miraPEX) 0.25 mg QHS PO Last administered on 21:32; Start 06/08/18 at 21:00 Acetaminophen (Tylenol) 1,000 mg PRN Q6HRS PRN PO pain Last administered on 14:22; Start 06/08/18 at 11:00 Albuterol Sulfate (Ventolin Neb Soln) 2.5 mg RTQID NEB Last administered on 21:40; Start 06/08/18 at 12:00 Potassium Chloride (Klor-Con) 20 meq DAILYWBKFT PO Last administered on 07:46; Start 06/08/18 at 11:15 Diltiazem HCl (Cardizem 24hr Cd) 120 mg DAILY PO Last administered on 08:56; Start 06/09/18 at 09:30 Prednisone (Prednisone) 60 mg DAILY PO ; Start 06/10/18 at 09:45; Stop 06/11/18 at 07:51; Status DC Levofloxacin (Levaquin) 500 mg DAILY06 PO Last administered on 06/12/18 05:31 ; Start 06/10/18 at 10:00 Apixaban (Eliquis) 10 mg BID PO Last administered on 06/11/18 21:32; Start at 21:00 Lactobacillus Rhamnosus (Culturelle) 1 cap BID PO Last administered on 21:32; Start 06/11/18 at 21:00 Advair 500-50 Diskus (Fluticasone/Salmeterol) 1 Each Disk.w.dev 1 Puff IH BID Xanax (Alprazolam) 0.5 Mg Tablet 1 Tab PO DAILY Lexapro (Escitalopram Oxalate) 20 Mg Tablet 1 Tab PO DAILY Gabapentin 600 Mg Tablet 600 Mg PO TID Lasix 40mg po qday x 5days Vital Signs Vital Signs Date Time Temp Pulse Resp B/P (MAP) Pulse Ox O2 Delivery O2 Flow Rate FiO2 06/12/18 07:15 98.6 77 20 144/88 (106) 93 Room Air 98.6 Labs Laboratory Tests Test 06/10/18 12:11 06/10/18 17:09 06/10/18 20:24 06/11/18 06:26 Glucose (Fingerstick) 215 mg/dL (70-99) 265 mg/dL (70-99) 220 mg/dL (70-99) White Blood Count 23.3 x10^3/uL (4.0-11.0) Red Blood Count 2.90 x10^6/uL (3.50-5.40) Hemoglobin 7.1 g/dL (12.0-15.5) Hematocrit 22.6 % (36.0-47.0) Mean Corpuscular Volume 78 fL (79-100) Mean Corpuscular Hemoglobin 24 pg (25-35) Mean Corpuscular Hemoglobin Concent 31 g/dL (31-37) Red Cell Distribution Width 22.6 % (11.5-14.5) Platelet Count 294 x10^3/uL (140-400) Neutrophils (%) (Auto) 80 % (31-73) Lymphocytes (%) (Auto) 7 % (24-48) Monocytes (%) (Auto) 11 % (0-9) Eosinophils (%) (Auto) 2 % (0-3) Basophils (%) (Auto) 0 % (0-3) Neutrophils # (Auto) 18.7 x10^3uL (1.8-7.7) Lymphocytes # (Auto) 1.6 x10^3/uL (1.0-4.8) Monocytes # (Auto) 2.6 x10^3/uL (0.0-1.1) Eosinophils # (Auto) 0.4 x10^3/uL (0.0-0.7) Basophils # (Auto) 0.1 x10^3/uL (0.0-0.2) Segmented Neutrophils % 65 % (35-66) Band Neutrophils % 9 % (0-9) Lymphocytes % 8 % (24-48) Monocytes % 10 % (0-10) Eosinophils % 3 % (0-5) Metamyelocytes % 5 % (0-0) Nucleated Red Blood Cells 7 Platelet Estimate Adequate (ADEQUATE) Polychromasia Present Hypochromasia Slight Poikilocytosis Slight Basophilic Stippling Present Anisocytosis Mod Ovalocytes Occ Sodium Level 142 mmol/L (136-145) Potassium Level 3.8 mmol/L (3.5-5.1) Chloride Level 107 mmol/L (98-107) Carbon Dioxide Level 27 mmol/L (21-32) Anion Gap 8 (6-14) Blood Urea Nitrogen 12 mg/dL (7-20) Creatinine 0.8 mg/dL (0.6-1.0) Estimated GFR (Cockcroft-Gault) 93.9 Glucose Level 137 mg/dL (70-99) Calcium Level 8.3 mg/dL (8.5-10.1) Test 06/11/18 07:27 06/11/18 11:56 06/11/18 17:04 06/11/18 19:54 Glucose (Fingerstick) 111 mg/dL (70-99) 165 mg/dL (70-99) 322 mg/dL (70-99) 248 mg/dL (70-99) Test 06/12/18 07:10 Glucose (Fingerstick) 177 mg/dL (70-99) Laboratory Tests Test 06/11/18 11:56 06/11/18 17:04 06/11/18 19:54 06/12/18 07:10 Glucose (Fingerstick) 165 mg/dL (70-99) 322 mg/dL (70-99) 248 mg/dL (70-99) 177 mg/dL (70-99) Allergies Allergies Coded Allergies Type Severity Reaction Last Updated Verified NSAIDS (Non-Steroidal Anti-Inflamma Allergy Intermediate 06/12/18 Yes Disposition/Orders: D/C to Home ANGELITA LABOY MD Jun 12, 2018 08:01
[2018-06-12] MEDS: LACTOBACILLUS RHAMNOSUS GG 1 CAPSULE. PO SCH (08:25)
[2018-06-12] MEDS: PANTOPRAZOLE 40 MG TABLET.DR. PO SCH (08:26)
[2018-06-12] MEDS: POTASSIUM CHLORIDE 20 MEQ TABLET.ER. PO SCH (08:26)
[2018-06-12] MEDS: diphenhydrAMINE HCL 25 MG CAPSULE PO SCH (08:26)
[2018-06-12] MEDS: BENZONATATE 100 MG CAPSULE. PO SCH (08:26)
[2018-06-12] MEDS: APIXABAN 5 MG TABLET. PO SCH (08:27)
[2018-06-12] MEDS: BACLOFEN 10 MG TABLET. PO SCH (08:27)
[2018-06-12] MEDS: CITALOPRAM 20 MG TABLET. PO SCH (08:27)
[2018-06-12] MEDS: ACETAMINOPHEN 325 MG TABLET. PO SCH (08:28)
[2018-06-12] MEDS: GABAPENTIN 300 MG CAPSULE. PO SCH (08:30)
[2018-06-12] MEDS: CYCLOBENZAPRINE 10 MG TABLET. PO SCH (08:31)
[2018-06-12] MEDS: INSULIN LISPRO 300 UNITS/3 ML INSULN.PEN. SQ SCH ×2 (08:42→12:38)
--- NOTE | 2018-06-12 09:01 | PDOC ---
PULMONARY PROGRESS NOTES Vitals Vital Signs Date Time Temp Pulse Resp B/P (MAP) Pulse Ox O2 Delivery O2 Flow Rate FiO2 06/12/18 08:27 77 144/88 06/12/18 07:57 Room Air 06/12/18 07:15 98.6 20 93 98.6 Labs Laboratory Tests Test 06/10/18 12:11 06/10/18 17:09 06/10/18 20:24 06/11/18 06:26 Glucose (Fingerstick) 215 mg/dL (70-99) 265 mg/dL (70-99) 220 mg/dL (70-99) White Blood Count 23.3 x10^3/uL (4.0-11.0) Red Blood Count 2.90 x10^6/uL (3.50-5.40) Hemoglobin 7.1 g/dL (12.0-15.5) Hematocrit 22.6 % (36.0-47.0) Mean Corpuscular Volume 78 fL (79-100) Mean Corpuscular Hemoglobin 24 pg (25-35) Mean Corpuscular Hemoglobin Concent 31 g/dL (31-37) Red Cell Distribution Width 22.6 % (11.5-14.5) Platelet Count 294 x10^3/uL (140-400) Neutrophils (%) (Auto) 80 % (31-73) Lymphocytes (%) (Auto) 7 % (24-48) Monocytes (%) (Auto) 11 % (0-9) Eosinophils (%) (Auto) 2 % (0-3) Basophils (%) (Auto) 0 % (0-3) Neutrophils # (Auto) 18.7 x10^3uL (1.8-7.7) Lymphocytes # (Auto) 1.6 x10^3/uL (1.0-4.8) Monocytes # (Auto) 2.6 x10^3/uL (0.0-1.1) Eosinophils # (Auto) 0.4 x10^3/uL (0.0-0.7) Basophils # (Auto) 0.1 x10^3/uL (0.0-0.2) Segmented Neutrophils % 65 % (35-66) Band Neutrophils % 9 % (0-9) Lymphocytes % 8 % (24-48) Monocytes % 10 % (0-10) Eosinophils % 3 % (0-5) Metamyelocytes % 5 % (0-0) Nucleated Red Blood Cells 7 Platelet Estimate Adequate (ADEQUATE) Polychromasia Present Hypochromasia Slight Poikilocytosis Slight Basophilic Stippling Present Anisocytosis Mod Ovalocytes Occ Sodium Level 142 mmol/L (136-145) Potassium Level 3.8 mmol/L (3.5-5.1) Chloride Level 107 mmol/L (98-107) Carbon Dioxide Level 27 mmol/L (21-32) Anion Gap 8 (6-14) Blood Urea Nitrogen 12 mg/dL (7-20) Creatinine 0.8 mg/dL (0.6-1.0) Estimated GFR (Cockcroft-Gault) 93.9 Glucose Level 137 mg/dL (70-99) Calcium Level 8.3 mg/dL (8.5-10.1) Test 06/11/18 07:27 06/11/18 11:56 06/11/18 17:04 06/11/18 19:54 Glucose (Fingerstick) 111 mg/dL (70-99) 165 mg/dL (70-99) 322 mg/dL (70-99) 248 mg/dL (70-99) Test 06/12/18 07:10 Glucose (Fingerstick) 177 mg/dL (70-99) Laboratory Tests Test 06/11/18 11:56 06/11/18 17:04 06/11/18 19:54 06/12/18 07:10 Glucose (Fingerstick) 165 mg/dL (70-99) 322 mg/dL (70-99) 248 mg/dL (70-99) 177 mg/dL (70-99) Medications Active Scripts Medications Dose Route/Sig Max Daily Dose Days Date Category Advair 500-50 Diskus (Fluticasone/Salmeterol) 1 Each Disk.w.dev 1 Puff IH BID 06/08/18 Rx Mirapex (Pramipexole Di-Hcl) 0.25 Mg Tablet 1 Tab PO QHS 06/08/18 Reported Xanax (Alprazolam) 0.5 Mg Tablet 1 Tab PO DAILY 06/08/18 Reported Proair Hfa Inhaler (Albuterol Sulfate) 8.5 Gm Hfa.aer.ad 1 Puff INH PRN Q6HRS PRN 06/08/18 Reported Baclofen 20 Mg Tablet 1 Tab PO TID 06/08/18 Reported Cyclobenzaprine Hcl 5 Mg Tablet 1 Tab PO BID 06/08/18 Reported Protonix (Pantoprazole Sodium) 20 Mg Tablet.dr 40 Mg PO DAILY 06/08/18 Reported Cardizem Tablet (Diltiazem Hcl) 30 Mg Tablet 30 Mg PO QID 06/08/18 Reported Lexapro (Escitalopram Oxalate) 20 Mg Tablet 1 Tab PO DAILY 06/08/18 Reported Xarelto (Rivaroxaban) 15 Mg Tablet 15 Mg PO DAILY 06/08/18 Reported Gabapentin 600 Mg Tablet 600 Mg PO TID 06/08/18 Reported Impression . FULL CONSULT DICTATED THANKS SEE ORDERS WILL CHECK NOCT DESAT STUDY DOUBT SEC PUL HTN SEC TO CHRONIC EMBOLI JEREMI WINN MD Jun 12, 2018 09:01
[2018-06-12] MEDS: IRON SUCROSE COMPLEX 300 MG in IV NORMAL SALINE 250ML 250 ML IV SCH (09:45)
[2018-06-12 09:58] VITALS: BP 136/84
[2018-06-12 10:09] VITALS: BP 140/85
[2018-06-12] MEDS ORDERED: ANTI-COAG MONITOR BY PHARMACY. MC PRN (10:45)
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
--- NOTE | 2018-06-12 14:44 | OP ---
DATE OF SURGERY: 06/12/2018 The patient underwent spirometry pre and post-bronchodilator. The FEV1 to FVC ratio was 69%. FEV1 was 1.36 liters or 54% of predicted. There was no significant bronchodilator response. IMPRESSION: 1. Moderate to severe airflow limitation. 2. No significant bronchodilator response. JEREMI WINN MD DR: DICKSON/jose JOB#: [id number] / [id number]
--- NOTE | 2018-06-12 14:46 | OP ---
DATE OF SURGERY: The patient underwent nocturnal desat study performed on room air. The total time recorded was 7 hours and 20 minutes. There were no significant periods of oxyhemoglobin desaturation below 88%. IMPRESSION: No significant periods of oxyhemoglobin desaturation below 88%. Recommend polysomnogram if clinically warranted. JEREMI WINN MD DR: DICKSON/jose JOB#: [id number] / [id number]
[2018-06-12 15:10] VITALS: BP 138/75
[2018-06-12] MEDS ORDERED: PRED20TA PO (15:12)
--- NOTE | 2018-06-12 17:58 | NUR ---
Discharge Note: ADONIS PIMENTEL T6 [facility] Discharge instructions and discharge home medications reviewed with patient and a copy given. All questions have been answered and understanding verbalized. The following instructions and handouts were given: FF up with Dr. Love in 5 to 7 days Ff up with hematology Sepsis, central line, pneumonia handout Discontinued lines and drains: IJ catheter intact, patient tolerated removal, no complications noted. Patient discharged to home with family member via wheelchair accompanied by family member at 1600.
[2018-06-18] MEDS ORDERED: APIXABAN 5 MG TABLET. PO SCH (21:00)
[2018-06-20] MEDS ORDERED: PRED-220 PO (07:27)
[2018-06-20] MEDS ORDERED: DOXY100C2 PO (07:27)
[2018-06-20] MEDS ORDERED: GABA-689 PO (07:27)
[2018-06-20] MEDS ORDERED: OSEL75CA PO (07:27)
[2018-06-20] MEDS ORDERED: dilTIAZem HCL PO (07:27)
[2018-06-20] MEDS ORDERED: APIX5TAB PO (07:27)
== END 2018-06-12 17:35 | disposition home or self-care (01) | DRG 871 ==
LOC: ER 14:23 → 1 WEST ICU 16:50 → 6 SOUTH 06-09 13:20
PROVIDERS: ADMIT Family Medicine; ATTEND Family Medicine
PROC: 30233N1 Transfusion of Nonautologous Red Blood Cells into Peripheral Vein, Percutaneous Approach (ICD-10-PCS; principal; 2018-06-07)
DX: A41.9 Sepsis, unspecified organism (principal); J18.9 Pneumonia, unspecified organism; R65.21 Severe sepsis with septic shock; J96.01 Acute respiratory failure with hypoxia; I26.99 Other pulmonary embolism without acute cor pulmonale; D62 Acute posthemorrhagic anemia; Z68.41 Body mass index [BMI] 40.0-44.9, adult; J45.901 Unspecified asthma with (acute) exacerbation; J90 Pleural effusion, not elsewhere classified; E87.6 Hypokalemia; F32.9 Major depressive disorder, single episode, unspecified; E11.9 Type 2 diabetes mellitus without complications; E66.01 Morbid (severe) obesity due to excess calories; F41.9 Anxiety disorder, unspecified; G47.33 Obstructive sleep apnea (adult) (pediatric); T38.0X5A Adverse effect of glucocorticoids and synthetic analogues, initial encounter; I10 Essential (primary) hypertension; I27.29 Other secondary pulmonary hypertension; I48.91 Unspecified atrial fibrillation; K21.9 Gastro-esophageal reflux disease without esophagitis; N92.0 Excessive and frequent menstruation with regular cycle; Z86.711 Personal history of pulmonary embolism; Z87.09 Personal history of other diseases of the respiratory system; Z79.899 Other long term (current) drug therapy; Z79.01 Long term (current) use of anticoagulants; Z90.49 Acquired absence of other specified parts of digestive tract; Z86.718 Personal history of other venous thrombosis and embolism; Z88.8 Allergy status to other drugs, medicaments and biological substances
CPT/HCPCS: 36415; 36556; 36600; 71045; 71275; 80048; 80053; 80061; 80202; 81001; 82274; 82565; 82607; 82728; 82805; 82962; 83010; 83540; 83550; 83605; 83615; 83735; 83880; 84145; 84484; 84702; 85007; 85025; 85027; 85045; 85384; 85610; 86850; 86870; 86900; 86901; 86902; 86920; 86922; 87040; 87804; 93005; 93306; 94060; 94640; 94760; 94799; 96361; 96365; 96368; J1756; J1815; J1940; J2543; J2920; J2930; J3370; J3475; J3490; J7030; J7040; J7050; J7613; J7620; P9016; Q0163; Q9967; 97110; 97116; 97530; 99291-25

== ENCOUNTER 2018-06-18 13:09 | Inpatient (IN) | payer OTHER ==
[~2018-06-18] VITALS: Ht 165.1 cm; Wt 102.1 kg
[~2018-06-18 13:09] MED LIST: ALBU2.5V8 INH; ALPR0.5T PO; BACL20TA PO; CYCL5TAB PO; DILT30TA26 PO; FERR325T14 PO; FLUT1DIS5 IH; GABA600T7 PO; LEXAPRO20 MG PO; METH-38 PO; OXYC1TAB19 PO; PANT20TA2 PO; PRAM0.255 PO; PRED20TA PO; RIVA15TA PO; SULF1TAB24 PO; TIZA4TAB PO
[2018-06-18] MEDS ORDERED: IPRATRPIUM/ALBUTEROL 0.5/2.5MG 3 ML NEBU. NEB ONE (13:15)
[2018-06-18 13:59] LABS: BASE EXCESS ABG 5 mmol/L (-3-3); HCO3 ABG 29 mmol/L (21-28); PCO2 ABG 42 mmHg (35-46); PO2 ABG 51 mmHg (75-108); SAT O2 ABG 86 % (92-99)
[2018-06-18 14:04] LABS: BASO # 0.1 x10^3/uL (0.0-0.2); BASO % 0 % (0-3); EOS # 0.3 x10^3/uL (0.0-0.7); EOS % 2 % (0-3); HEMOGLOBIN 7.5 g/dL (12.0-15.5); LYMPH # 1.4 x10^3/uL (1.0-4.8); LYMPH % 8 % (24-48); MEAN CORPUSCULAR HEMOGLOBIN 26 pg (25-35); MEAN CORPUSCULAR HGB CONC 30 g/dL (31-37); MEAN CORPUSCULAR VOLUME 88 fL (79-100); MONO # 0.5 x10^3/uL (0.0-1.1); MONO % 3 % (0-9); NEUT # 15.5 x10^3uL (1.8-7.7); NEUT % 87 % (31-73); PLATELET COUNT 407 x10^3/uL (140-400); RED BLOOD COUNT 2.85 x10^6/uL (3.50-5.40); RED CELL DISTRIBUTION WIDTH 38.9 % (11.5-14.5); WHITE BLOOD COUNT 17.9 x10^3/uL (4.0-11.0)
[2018-06-18 14:08] LABS: FIO2 ABG 21
--- NOTE | 2018-06-18 14:19 | RAD ---
Indication:SOA, WHEEZING TECHNIQUE:Portable AP chest X-ray COMPARISON:06/08/2018 FINDINGS: Heart is normal in size. I lateral prominent bronchial markings and interstitial opacities. No focal consolidation. No pneumothorax or effusion. Visualized bony thorax within normal limits. IMPRESSION: Bronchitis with superimposed atypical/viral infection. Electronically signed by: Nathan Gillespie DO (06/18/2018 2:14 PM) [id number]
[2018-06-18 14:21] LABS: CALCIUM 8.4 mg/dL (8.5-10.1); CREATININE 0.8 mg/dL (0.6-1.0); GFR 93.9; POTASSIUM 4.1 mmol/L (3.5-5.1)
[2018-06-18 14:28] LABS: ALBUMIN 2.9 g/dL (3.4-5.0); TOTAL BILIRUBIN 0.5 mg/dL (0.2-1.0); TOTAL PROTEIN 5.9 g/dL (6.4-8.2)
--- NOTE | 2018-06-18 15:02 | EKG ---
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
--- NOTE | 2018-06-18 16:17 | PHYS DOC ---
Past Medical History Past Medical History: A-Fib, Anemia, Asthma, Diabetes-Type II, DVT, Pneumonia Additional Past Medical Histor: PE Past Surgical History: Cholecystectomy Alcohol Use: None Drug Use: None Adult General Chief Complaint Chief Complaint: SHORTNESS OF BREATH [facility] HPI Patient is a 43 year old female was sent here from her family physician clinic due to low oxygen saturation in the 84% on room air. Patient was recently discharged from the hospital due to sepsis, pneumonia, anemia. She was found to be iron deficiency anemia. Patient was given iron transfusion in the hospital. She says she feel much better. Patient denies any chest pain or trouble breathing, however she had trouble breathing only with exertion. SHe went to her family doctor today for follow-up after discharge from the hospital, her doctor evaluated HER in the clinic, felt that her saturation was 84% on room air so she was sent here for further evaluation and treatment. Review of Systems Review of Systems Constitutional: Denies fever or chills. POSITIVE FOR GENERALIZED WEAKNESS Eyes: Denies change in visual acuity, redness, or eye pain [] HENT: Denies nasal congestion or sore throat [] Respiratory: Denies cough, positive for shortness of air with exertion. Cardiovascular: No additional information not addressed in HPI [] GI: Denies abdominal pain, nausea, vomiting, bloody stools or diarrhea [] : Denies dysuria or hematuria [] Musculoskeletal: Denies back pain or joint pain [] Integument: Denies rash or skin lesions [] Neurologic: Denies headache, focal weakness or sensory changes [] Endocrine: Denies polyuria or polydipsia [] All other systems were reviewed and found to be within normal limits, except as documented in this note. Current Medications Current Medications Current Medications Medications (Trade) Dose Ordered Sig/Torey Start Time Stop Time Status Last Admin Dose Admin Albuterol/ Ipratropium (Duoneb) 3 ml 1X ONCE 06/18/18 13:15 06/18/18 13:16 DC 06/18/18 13:56 3 ML Allergies Allergies Allergies Coded Allergies Type Severity Reaction Last Updated Verified NSAIDS (Non-Steroidal Anti-Inflamma Allergy Intermediate 06/12/18 Yes Physical Exam Physical Exam Constitutional: Well developed, well nourished, no acute distress, non-toxic appearance. [] HENT: Normocephalic, atraumatic, bilateral external ears normal, oropharynx moist, no oral exudates, nose normal. [] Eyes: PERRLA, EOMI, conjunctiva PALE, no discharge. [] Neck: Normal range of motion, no tenderness, supple, no stridor. [] Cardiovascular:Heart rate regular rhythm, no murmur [] Lungs & Thorax: Bilateral breath sounds clear to auscultation [] Abdomen: Bowel sounds normal, soft, no tenderness, no masses, no pulsatile masses. [] Skin: Warm, dry, no erythema, no rash. [] Back: No tenderness, no CVA tenderness. [] Extremities: No tenderness, no cyanosis, no clubbing, ROM intact, no edema. [] Neurologic: Alert and oriented X 3, normal motor function, normal sensory function, no focal deficits noted. [] Psychologic: Affect normal, judgement normal, mood normal. [] Current Patient Data Vital Signs Vital Signs Date Time Temp Pulse Resp B/P (MAP) Pulse Ox O2 Delivery O2 Flow Rate FiO2 06/18/18 16:15 109 20 107/56 (73) 99 Nasal Cannula 2.0 06/18/18 13:10 98.1 98.1 Lab Values Laboratory Tests Test 06/18/18 13:45 White Blood Count 17.9 x10^3/uL (4.0-11.0) H Red Blood Count 2.85 x10^6/uL (3.50-5.40) L Hemoglobin 7.5 g/dL (12.0-15.5) L Hematocrit 25.0 % (36.0-47.0) L Mean Corpuscular Volume 88 fL (79-100) Mean Corpuscular Hemoglobin 26 pg (25-35) Mean Corpuscular Hemoglobin Concent 30 g/dL (31-37) L Red Cell Distribution Width 38.9 % (11.5-14.5) H Platelet Count 407 x10^3/uL (140-400) H Neutrophils (%) (Auto) 87 % (31-73) H Lymphocytes (%) (Auto) 8 % (24-48) L Monocytes (%) (Auto) 3 % (0-9) Eosinophils (%) (Auto) 2 % (0-3) Basophils (%) (Auto) 0 % (0-3) Neutrophils # (Auto) 15.5 x10^3uL (1.8-7.7) H Lymphocytes # (Auto) 1.4 x10^3/uL (1.0-4.8) Monocytes # (Auto) 0.5 x10^3/uL (0.0-1.1) Eosinophils # (Auto) 0.3 x10^3/uL (0.0-0.7) Basophils # (Auto) 0.1 x10^3/uL (0.0-0.2) O2 Saturation 86 % (92-99) L Arterial Blood pH 7.47 (7.35-7.45) H Arterial Blood pCO2 at Patient Temp 42 mmHg (35-46) Arterial Blood pO2 at Patient Temp 51 mmHg (75-108) L Arterial Blood HCO3 29 mmol/L (21-28) H Arterial Blood Base Excess 5 mmol/L (-3-3) H FiO2 21 Sodium Level 141 mmol/L (136-145) Potassium Level 4.1 mmol/L (3.5-5.1) Chloride Level 100 mmol/L (98-107) Carbon Dioxide Level 34 mmol/L (21-32) H Anion Gap 7 (6-14) Blood Urea Nitrogen 15 mg/dL (7-20) Creatinine 0.8 mg/dL (0.6-1.0) Estimated GFR (Cockcroft-Gault) 93.9 BUN/Creatinine Ratio 19 (6-20) Glucose Level 185 mg/dL (70-99) H Calcium Level 8.4 mg/dL (8.5-10.1) L Total Bilirubin 0.5 mg/dL (0.2-1.0) Aspartate Amino Transferase (AST) 26 U/L (15-37) Alanine Aminotransferase (ALT) 28 U/L (14-59) Alkaline Phosphatase 93 U/L (46-116) Creatine Kinase 240 U/L (26-192) H Creatine Kinase MB (Mass) 1.2 ng/mL (0.0-3.6) Creatine Kinase MB Relative Index 0.5 % (0-4) Troponin I Quantitative < 0.017 ng/mL (0.000-0.055) YZ-Vll-V-Type Natriuretic Peptide 70 pg/mL (0-124) Total Protein 5.9 g/dL (6.4-8.2) L Albumin 2.9 g/dL (3.4-5.0) L Albumin/Globulin Ratio 1.0 (1.0-1.7) Laboratory Tests 06/18/18 13:45 Laboratory Tests 06/18/18 13:45 EKG EKG [] Radiology/Procedures Radiology/Procedures [][facility] [address] [place] [address] IMAGING REPORT Signed PATIENT: ADONIS PIMENTEL ACCOUNT: [id number] : 1975 LOCATION: ER AGE: 43 SEX: F EXAM STATUS: REG ER ORD. PHYSICIAN: FAROOQ GR DO REASON: soa PROCEDURE: PORTABLE CHEST 1V Indication:SOA, WHEEZING TECHNIQUE:Portable AP chest X-ray COMPARISON:06/08/2018 FINDINGS: Heart is normal in size. I lateral prominent bronchial markings and interstitial opacities. No focal consolidation. No pneumothorax or effusion. Visualized bony thorax within normal limits. IMPRESSION: Bronchitis with superimposed atypical/viral infection. Electronically signed by: Nathan Gillespie DO (06/18/2018 2:14 PM) [id number] DICTATED and SIGNED BY: NATHAN GILLESPIE DO DATE: 06/18/18 1413 Course & Med Decision Making Course & Med Decision Making Pertinent Labs and Imaging studies reviewed. (See chart for details) [] Dragon Disclaimer Dragon Disclaimer This electronic medical record was generated, in whole or in part, using a voice recognition dictation system. Departure Departure Impression: Primary Impression: Hypoxia Additional Impression: Anemia Disposition: 09 ADMITTED INPATIENT Admitting Physician: Ermias Love Condition: STABLE Referrals: ERMIAS LOVE MD (PCP) Problem Qualifiers FAROOQ GR DO Jun 18, 2018 16:17
[2018-06-18] MEDS ORDERED: ONDANSETRON PF 4 MG/2 ML VIAL. IV PRN (16:30)
[2018-06-18 19:00] VITALS: BP 106/54
[2018-06-18 19:14] LABS: BILIRUBIN,URINE NEGATIVE (NEG); CLARITY,URINE CLOUDY; COLOR,URINE YELLOW; NITRITE,URINE NEGATIVE (NEG); PH,URINE 6.5; PROTEIN,URINE NEGATIVE (NEG-TRACE)
[2018-06-18 19:25] LABS: BACTERIA,URINE 0 /HPF (0-FEW); RBC,URINE 0 /HPF (0-2); SQUAMOUS EPITHELIAL CELL,UR OCC /LPF; WBC,URINE OCC /HPF (0-4)
[2018-06-18] MEDS ORDERED: APIX2.5T PO (19:35)
[2018-06-18] MEDS ORDERED: IRON1TAB2 PO (19:35)
[2018-06-18] MEDS: IPRATRPIUM/ALBUTEROL 0.5/2.5MG 3 ML NEBU. NEB SCH (20:58)
[2018-06-18] MEDS ORDERED: ALBUTEROL SULFATE 2.5 MG/3 ML NEBU. NEB PRN (21:00)
[2018-06-18] MEDS ORDERED: GABAPENTIN 300 MG CAPSULE. PO SCH (21:15)
[2018-06-18] MEDS ORDERED: GABAPENTIN 300 MG CAPSULE. PO ONE (22:00)
[2018-06-18 23:37] VITALS: BP 106/54
[2018-06-19] MEDS: HYDROcodone/APAP 5/325MG 1 TAB TABLET PO PRN ×3 (02:47→20:37)
[2018-06-19 03:45] VITALS: BP 123/69
[2018-06-19 07:25] VITALS: BP 120/51
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
[2018-06-19] MEDS ORDERED: DEXTROSE 50% 25 GM / 50ML DISP.SYRIN. IV PRN (07:45)
[2018-06-19] MEDS: IPRATRPIUM/ALBUTEROL 0.5/2.5MG 3 ML NEBU. NEB SCH ×4 (07:52→21:00)
[2018-06-19] MEDS: INSULIN LISPRO 300 UNITS/3 ML INSULN.PEN. SQ SCH ×3 (07:53→17:29)
[2018-06-19] MEDS ORDERED: ANTI-COAG MONITOR BY PHARMACY. MC PRN (08:00)
[2018-06-19] MEDS: BUDESONIDE 0.5 MG/2 ML NEBU. NEB SCH ×2 (09:00→20:26)
[2018-06-19] MEDS: PANTOPRAZOLE 40 MG TABLET.DR. PO SCH (09:18)
[2018-06-19] MEDS: GABAPENTIN 400 MG CAPSULE. PO SCH ×3 (09:18→20:38)
[2018-06-19] MEDS: FERROUS SULFATE 325 MG TABLET. PO SCH (09:18)
[2018-06-19] MEDS: APIXABAN 5 MG TABLET. PO SCH ×2 (09:18→20:37)
[2018-06-19] MEDS: CITALOPRAM 20 MG TABLET. PO SCH (09:18)
[2018-06-19 10:50] VITALS: BP 110/55
[2018-06-19 11:55] LABS: INFLUENZA A PATIENT POSITIVE (NEGATIVE); INFLUENZA B PATIENT NEGATIVE (NEGATIVE)
[2018-06-19] MEDS ORDERED: IOHEXOL 350 MG/ML 100 ML VIAL. IV ONE (12:00)
[2018-06-19] MEDS ORDERED: CONTRAST GIVEN. MC PRN (12:15)
[2018-06-19] MEDS: OSELTAMIVIR 75 MG CAPSULE PO SCH ×2 (13:58→20:37)
[2018-06-19] MEDS: methylPREDNISolone SOD SUCC PF 40 MG/ML VIAL. IV SCH ×2 (13:59→20:38)
--- NOTE | 2018-06-19 14:15 | RAD ---
PQRS Compliance statement: One or more of the following individualized dose reduction techniques were utilized for this examination: 1. Automated exposure control. 2. Adjustment of the mA and/or kV according to patient size. 3. Use of iterative reconstruction technique. Indication:SOA, COUGH, HX PE, [id number] 100ML, PRIOR SENT TECHNIQUE: CT angiogram of the chest with IV contrast with multiplanar MIP reformats. COMPARISON:06/10/2018 FINDINGS: Diagnostic quality PE study. There are no new central, segmental or subsegmental filling defects in the pulmonary arteries. Heart is normal in size. No pericardial or pleural effusion. No enlarged axillary, mediastinal adenopathy. 1.8 cm right thyroid lobe nodule. Bilateral hilar soft tissue is noted likely lymph nodes, the largest on the right side measuring 1.7 x 1.3 cm, previously 2.0 x 1.6 cm and on the left side measuring 1.7 x 1.3 cm, previously 1.5 x 1.4 cm. Large stable sliding hiatal hernia is seen. Central airways are patent. Subsegmental atelectasis is seen in the bilateral lower lobes and along the hernia in the left lower lobe. Interval resolution of previously seen consolidation in the right lower lobe. Scattered patchy opacities persists in the right lower lobe. Diffuse hepatic steatosis. Visualized sections through the liver, pancreas, adrenals and kidneys within normal limits. No suspicious bony lesion. IMPRESSION: 1. No apparent PE. 2. Interval resolution of previously seen right lower consolidation with residual patchy opacities likely infectious or aspiration. 3. Subsegmental atelectasis in the left lower lobe. 4. Slight interval decrease in the size of right hilar adenopathy and stable left hilar adenopathy most likely reactive. 4. Moderate to large sliding hiatal hernia. Electronically signed by: Nathan Gillespie DO (06/19/2018 2:11 PM) [id number]
[2018-06-19 15:14] VITALS: BP 114/64
--- NOTE | 2018-06-19 15:16 | NUR ---
SW following pt for anticipated dc needs. Chart reviewed and discussed with RN. Pt lives at home. RN reported pt is independent and No SW needs noted at this time. Will continue to evaluate dc needs.
--- NOTE | 2018-06-19 16:09 | PDOC ---
PULMONARY PROGRESS NOTES Vitals Vital Signs Date Time Temp Pulse Resp B/P (MAP) Pulse Ox O2 Delivery O2 Flow Rate FiO2 06/19/18 16:04 Nasal Cannula 2.0 06/19/18 15:14 98.6 108 14 114/64 (81) 95 98.6 Lungs: Crackles Cardiovascular: S1, S2 Abdomen: Soft Extremities: No Edema Labs Laboratory Tests Test 06/18/18 13:45 06/18/18 17:38 06/19/18 07:50 06/19/18 10:52 White Blood Count 17.9 x10^3/uL (4.0-11.0) Red Blood Count 2.85 x10^6/uL (3.50-5.40) Hemoglobin 7.5 g/dL (12.0-15.5) Hematocrit 25.0 % (36.0-47.0) Mean Corpuscular Volume 88 fL (79-100) Mean Corpuscular Hemoglobin 26 pg (25-35) Mean Corpuscular Hemoglobin Concent 30 g/dL (31-37) Red Cell Distribution Width 38.9 % (11.5-14.5) Platelet Count 407 x10^3/uL (140-400) Neutrophils (%) (Auto) 87 % (31-73) Lymphocytes (%) (Auto) 8 % (24-48) Monocytes (%) (Auto) 3 % (0-9) Eosinophils (%) (Auto) 2 % (0-3) Basophils (%) (Auto) 0 % (0-3) Neutrophils # (Auto) 15.5 x10^3uL (1.8-7.7) Lymphocytes # (Auto) 1.4 x10^3/uL (1.0-4.8) Monocytes # (Auto) 0.5 x10^3/uL (0.0-1.1) Eosinophils # (Auto) 0.3 x10^3/uL (0.0-0.7) Basophils # (Auto) 0.1 x10^3/uL (0.0-0.2) O2 Saturation 86 % (92-99) Arterial Blood pH 7.47 (7.35-7.45) Arterial Blood pCO2 at Patient Temp 42 mmHg (35-46) Arterial Blood pO2 at Patient Temp 51 mmHg (75-108) Arterial Blood HCO3 29 mmol/L (21-28) Arterial Blood Base Excess 5 mmol/L (-3-3) FiO2 21 Sodium Level 141 mmol/L (136-145) Potassium Level 4.1 mmol/L (3.5-5.1) Chloride Level 100 mmol/L (98-107) Carbon Dioxide Level 34 mmol/L (21-32) Anion Gap 7 (6-14) Blood Urea Nitrogen 15 mg/dL (7-20) Creatinine 0.8 mg/dL (0.6-1.0) Estimated GFR (Cockcroft-Gault) 93.9 BUN/Creatinine Ratio 19 (6-20) Glucose Level 185 mg/dL (70-99) Calcium Level 8.4 mg/dL (8.5-10.1) Total Bilirubin 0.5 mg/dL (0.2-1.0) Aspartate Amino Transf (AST/SGOT) 26 U/L (15-37) Alanine Aminotransferase (ALT/SGPT) 28 U/L (14-59) Alkaline Phosphatase 93 U/L (46-116) Creatine Kinase 240 U/L (26-192) Creatine Kinase MB (Mass) 1.2 ng/mL (0.0-3.6) Creatine Kinase MB Relative Index 0.5 % (0-4) Troponin I Quantitative < 0.017 ng/mL (0.000-0.055) ZF-Xvb-H-Type Natriuretic Peptide 70 pg/mL (0-124) Total Protein 5.9 g/dL (6.4-8.2) Albumin 2.9 g/dL (3.4-5.0) Albumin/Globulin Ratio 1.0 (1.0-1.7) Urine Color Yellow Urine Clarity Cloudy Urine pH 6.5 Urine Specific [place] 1.025 Urine Protein Negative mg/dL (NEG-TRACE) Urine Glucose (UA) 500 mg/dL (NEG) Urine Ketones (Stick) Negative mg/dL (NEG) Urine Blood Negative (NEG) Urine Nitrite Negative (NEG) Urine Bilirubin Negative (NEG) Urine Urobilinogen Dipstick 1.0 mg/dL (0.2 mg/dL) Urine Leukocyte Esterase Negative (NEG) Urine RBC 0 /HPF (0-2) Urine WBC Occ /HPF (0-4) Urine Squamous Epithelial Cells Occ /LPF Urine Bacteria 0 /HPF (0-FEW) Urine Mucus Slight /LPF Glucose (Fingerstick) 108 mg/dL (70-99) Influenza Type A Antigen Positive (NEGATIVE) Influenza Type B Antigen Negative (NEGATIVE) Test 06/19/18 11:02 06/19/18 15:46 Glucose (Fingerstick) 138 mg/dL (70-99) 218 mg/dL (70-99) Laboratory Tests Test 06/18/18 17:38 06/19/18 07:50 06/19/18 10:52 06/19/18 11:02 Urine Color Yellow Urine Clarity Cloudy Urine pH 6.5 Urine Specific [place] 1.025 Urine Protein Negative mg/dL (NEG-TRACE) Urine Glucose (UA) 500 mg/dL (NEG) Urine Ketones (Stick) Negative mg/dL (NEG) Urine Blood Negative (NEG) Urine Nitrite Negative (NEG) Urine Bilirubin Negative (NEG) Urine Urobilinogen Dipstick 1.0 mg/dL (0.2 mg/dL) Urine Leukocyte Esterase Negative (NEG) Urine RBC 0 /HPF (0-2) Urine WBC Occ /HPF (0-4) Urine Squamous Epithelial Cells Occ /LPF Urine Bacteria 0 /HPF (0-FEW) Urine Mucus Slight /LPF Glucose (Fingerstick) 108 mg/dL (70-99) 138 mg/dL (70-99) Influenza Type A Antigen Positive (NEGATIVE) Influenza Type B Antigen Negative (NEGATIVE) Test 06/19/18 15:46 Glucose (Fingerstick) 218 mg/dL (70-99) Medications Active Scripts Medications Dose Route/Sig Max Daily Dose Days Date Category Ferralet 90 Dual-Iron Tablet (Iron, Carb & Gluc/Fa/B12/C/Dss) 1 Each Tablet 1 Tab PO DAILY 06/18/18 Reported Eliquis (Apixaban) 2.5 Mg Tablet 2.5 Mg PO BID PRN 06/18/18 Reported Advair 500-50 Diskus (Fluticasone/Salmeterol) 1 Each Disk.w.dev 1 Puff IH BID 06/08/18 Rx Mirapex (Pramipexole Di-Hcl) 0.25 Mg Tablet 1 Tab PO QHS 06/08/18 Reported Xanax (Alprazolam) 0.5 Mg Tablet 1 Tab PO PRN DAILY PRN 06/08/18 Reported Proair Hfa Inhaler (Albuterol Sulfate) 8.5 Gm Hfa.aer.ad 1 Puff INH PRN Q6HRS PRN 06/08/18 Reported Baclofen 20 Mg Tablet 1 Tab PO TID 06/08/18 Reported Cyclobenzaprine Hcl 5 Mg Tablet 1 Tab PO PRN BID 06/08/18 Reported Protonix (Pantoprazole Sodium) 20 Mg Tablet.dr 40 Mg PO DAILY 06/08/18 Reported Cardizem Tablet (Diltiazem Hcl) 30 Mg Tablet 30 Mg PO DAILY 06/08/18 Reported Lexapro (Escitalopram Oxalate) 20 Mg Tablet 1 Tab PO DAILY 06/08/18 Reported Gabapentin 600 Mg Tablet 600 Mg PO TID 06/08/18 Reported Impression . NOTE DICTATED THANKS INFLUENZA AGREE WITH CURRENT RX NO NEW PE JEREMI WINN MD Jun 19, 2018 16:09
[2018-06-19 19:52] VITALS: BP 113/76
[2018-06-19] MEDS ORDERED: INSULIN LISPRO 300 UNITS/3 ML INSULN.PEN. SQ ONE (20:00)
[2018-06-19] MEDS ORDERED: PRAMIPEXOLE 0.25 MG TABLET. PO SCH (21:00)
[2018-06-19 22:57] VITALS: BP 115/64
[2018-06-20] MEDS: INSULIN LISPRO 300 UNITS/3 ML INSULN.PEN. SQ SCH ×2 (00:24→05:34)
[2018-06-20 02:13] LABS: HEMOGLOBIN A1C 5.4 % (4.8-5.6)
[2018-06-20 03:25] VITALS: BP 125/77
[2018-06-20] MEDS: HYDROcodone/APAP 5/325MG 1 TAB TABLET PO PRN (05:25)
[2018-06-20] MEDS: methylPREDNISolone SOD SUCC PF 40 MG/ML VIAL. IV SCH (05:26)
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
[2018-06-20 07:00] VITALS: BP 117/70
[2018-06-20] MEDS ORDERED: PRED-220 PO (07:27)
[2018-06-20] MEDS ORDERED: APIX5TAB PO (07:27)
[2018-06-20] MEDS ORDERED: OSEL75CA PO (07:27)
[2018-06-20] MEDS ORDERED: GABA-689 PO (07:27)
[2018-06-20] MEDS ORDERED: dilTIAZem HCL PO (07:27)
[2018-06-20] MEDS ORDERED: DOXY100C2 PO (07:27)
--- NOTE | 2018-06-20 07:33 | PDOC3 ---
Discharge Summary Date of Admission: Jun 19, 2018 Date of Discharge: Jun 20, 2018 Follow-Up: 3-5 days Admitting Diagnosis comment: Acute respiratory failure, hypoxemia FINAL DIAGNOSIS Acute respiratory failure, Influenza A, Hx PE, Hx of DM2, Increased CV risk, Anemia, Pulmonary Embolism, Leukocytosis, PEM-mild Brief Hospital Course DISCHARGE PHYSICAL EXAM GEN.: No apparent distress. Alert and oriented. HEENT: Head is normocephalic, atraumatic NECK: Supple. LUNGS: wheezing and rhonchi improved, poor airflow throughout HEART: RRR, S1, S2 present. Peripheral pulses intact ABDOMEN: Soft, nontender. Positive bowel sounds. EXTREMITIES: Without any cyanosis. NEUROLOGIC: Normal speech, normal tone PSYCHIATRIC: Normal affect, normal mood. SKIN: No ulcerations Pt admitted for acute respiratory failure 1)Acute respiratory failure- 2/2 influenza. Pulmonary following. Pt is on Tamiflu and steroids. Doxycycline started today. 2)Hx of DM2- last HbA1C was 4.8. Not currently on any medication. BS likely elevated 2/2 steroids, HbA1C 5.4 this admission. Had SSI and was receiving insulin 3)Increased CV risk- pt's statin resumed 4)Anemia- Hb stable. Continue Ferrous Sulfate 5)Pulmonary embolism- Repeat CT chest did not show PE. Pt has apt with hematology this coming week. Will continue Eliquis for now but pt will discuss with tapping machine operator at appointment. 6)Leukocytosis- likely 2/2 steroid use 7)PEM- mild CONDITION AT DISCHARGE: Stable Discharge Medications Current Medications Albuterol/ Ipratropium (Duoneb) 3 ml 1X ONCE NEB Last administered on at 13:56; Start 06/18/18 at 13:15; Stop 06/18/18 at 13:16; Status DC Ondansetron HCl (Zofran) 4 mg PRN Q8HRS PRN IV NAUSEA/VOMITING; Start 06/18/18 at 16:30; Stop 06/19/18 at 16:29; Status DC Albuterol/ Ipratropium (Duoneb) 3 ml RTQID NEB Last administered on 06/19/18at 16 :03; Start 06/18/18 at 20:00; Stop 06/19/18 at 19:59; Status DC Gabapentin (Neurontin) 600 mg TID PO Last administered on 06/18/18at 22:03; Start 06/18/18 at 21:15; Stop 06/19/18 at 07:38; Status DC Albuterol Sulfate (Ventolin Neb Soln) 2.5 mg PRN Q4HRS PRN NEB SHORTNESS OF BREATH; Start 06/18/18 at 21:00 Acetaminophen/ Hydrocodone Bitart (Lortab 5/325) 1 tab PRN Q6HRS PRN PO PAIN Last administered on 06/20/18 05:25; Start 06/19/18 at 02:30 Methylprednisolone Sodium Succinate (SOLU-Medrol 40MG VIAL) 80 mg Q8HRS IV Last administered on 06/20/18 05:26; Start 06/19/18 at 14:00 Gabapentin (Neurontin) 800 mg TID PO Last administered on 06/19/18 20:38; Start 06/19/18 at 09:00 Apixaban (Eliquis) 5 mg BID PO Last administered on 06/19/18 20:37; Start at 09:00 Citalopram Hydrobromide (CeleXA) 20 mg DAILY PO Last administered on 06/19/18 09:18; Start 06/19/18 at 09:00 Ferrous Sulfate (Feosol) 325 mg DAILYWBKFT PO Last administered on 06/19/18 09: 18; Start 06/19/18 at 08:00 Pantoprazole Sodium (Protonix) 40 mg DAILYAC PO Last administered on 06/19/18 09:18; Start 06/19/18 at 09:00 Pramipexole Dihydrochloride (miraPEX) 0.25 mg QHS PO Last administered on 20:36; Start 06/19/18 at 21:00 Budesonide (Pulmicort) 0.5 mg RTBID NEB Last administered on 06/19/18 20:26; Start 06/19/18 at 09:00 Diltiazem HCl (Cardizem 24hr Cd) 120 mg DAILY PO Last administered on 06/19/18 09:19; Start 06/19/18 at 09:00 Insulin Human Lispro (HumaLOG) 0-5 UNITS TIDWMEALS SQ Last administered on 17:29; Start 06/19/18 at 08:00; Stop 06/19/18 at 20:00; Status DC Dextrose (Dextrose 50%-Water Syringe) 12.5 gm PRN Q15MIN PRN IV SEE COMMENTS; Start 06/19/18 at 07:45 Info (Anti-Coagulation Monitoring By Pharmacy) 1 each PRN DAILY PRN MC SEE COMMENTS; Start 06/19/18 at 08:00 Gabapentin (Neurontin) 600 mg STK-MED ONCE PO ; Start 06/18/18 at 22:00; Stop 06/19/18 at 11:16; Status DC Iohexol (Omnipaque 350 Mg/ml) 100 ml 1X ONCE IV ; Start 06/19/18 at 12:00; Stop 06/19/18 at 12:02; Status DC Info (CONTRAST GIVEN -- Rx MONITORING) 1 each PRN DAILY PRN MC SEE COMMENTS; Start 06/19/18 at 12:15; Stop 06/21/18 at 12:14 Oseltamivir Phosphate (Tamiflu) 75 mg BID PO Last administered on 06/19/18at 20: 37; Start 06/19/18 at 13:45; Stop 06/24/18 at 13:44 Insulin Human Lispro (HumaLOG) 0-12 UNITS Q6HRS SQ Last administered on at 05:34; Start 06/20/18 at 00:00 Insulin Human Lispro (HumaLOG) 10 units 1X ONCE SQ Last administered on at 20:49; Start 06/19/18 at 20:00; Stop 06/19/18 at 20:01; Status DC Albuterol/ Ipratropium (Duoneb) 3 ml RTQID NEB ; Start 06/19/18 at 21:00 Active Scripts Active Advair 500-50 Diskus (Fluticasone/Salmeterol) 1 Each Disk.w.dev 1 Puff IH BID Reported Ferralet 90 Dual-Iron Tablet (Iron, Carb & Gluc/Fa/B12/C/Dss) 1 Each Tablet 1 Tab PO DAILY Eliquis (Apixaban) 2.5 Mg Tablet 2.5 Mg PO BID PRN Mirapex (Pramipexole Di-Hcl) 0.25 Mg Tablet 1 Tab PO QHS Xanax (Alprazolam) 0.5 Mg Tablet 1 Tab PO PRN DAILY PRN Proair Hfa Inhaler (Albuterol Sulfate) 8.5 Gm Hfa.aer.ad 1 Puff INH PRN Q6HRS PRN Baclofen 20 Mg Tablet 1 Tab PO TID Cyclobenzaprine Hcl 5 Mg Tablet 1 Tab PO PRN BID Protonix (Pantoprazole Sodium) 20 Mg Tablet.dr 40 Mg PO DAILY Cardizem Tablet (Diltiazem Hcl) 30 Mg Tablet 30 Mg PO DAILY Lexapro (Escitalopram Oxalate) 20 Mg Tablet 1 Tab PO DAILY Gabapentin 600 Mg Tablet 600 Mg PO TID Vital Signs Vital Signs Date Time Temp Pulse Resp B/P (MAP) Pulse Ox O2 Delivery O2 Flow Rate FiO2 06/20/18 06:25 Room Air 06/20/18 03:25 98.0 97 18 125/77 (93) 91 98.0 06/19/18 20:16 2.0 Labs Laboratory Tests Test 06/18/18 13:45 06/18/18 17:38 06/19/18 07:50 06/19/18 10:52 White Blood Count 17.9 x10^3/uL (4.0-11.0) Red Blood Count 2.85 x10^6/uL (3.50-5.40) Hemoglobin 7.5 g/dL (12.0-15.5) Hematocrit 25.0 % (36.0-47.0) Mean Corpuscular Volume 88 fL (79-100) Mean Corpuscular Hemoglobin 26 pg (25-35) Mean Corpuscular Hemoglobin Concent 30 g/dL (31-37) Red Cell Distribution Width 38.9 % (11.5-14.5) Platelet Count 407 x10^3/uL (140-400) Neutrophils (%) (Auto) 87 % (31-73) Lymphocytes (%) (Auto) 8 % (24-48) Monocytes (%) (Auto) 3 % (0-9) Eosinophils (%) (Auto) 2 % (0-3) Basophils (%) (Auto) 0 % (0-3) Neutrophils # (Auto) 15.5 x10^3uL (1.8-7.7) Lymphocytes # (Auto) 1.4 x10^3/uL (1.0-4.8) Monocytes # (Auto) 0.5 x10^3/uL (0.0-1.1) Eosinophils # (Auto) 0.3 x10^3/uL (0.0-0.7) Basophils # (Auto) 0.1 x10^3/uL (0.0-0.2) O2 Saturation 86 % (92-99) Arterial Blood pH 7.47 (7.35-7.45) Arterial Blood pCO2 at Patient Temp 42 mmHg (35-46) Arterial Blood pO2 at Patient Temp 51 mmHg (75-108) Arterial Blood HCO3 29 mmol/L (21-28) Arterial Blood Base Excess 5 mmol/L (-3-3) FiO2 21 Sodium Level 141 mmol/L (136-145) Potassium Level 4.1 mmol/L (3.5-5.1) Chloride Level 100 mmol/L (98-107) Carbon Dioxide Level 34 mmol/L (21-32) Anion Gap 7 (6-14) Blood Urea Nitrogen 15 mg/dL (7-20) Creatinine 0.8 mg/dL (0.6-1.0) Estimated GFR (Cockcroft-Gault) 93.9 BUN/Creatinine Ratio 19 (6-20) Glucose Level 185 mg/dL (70-99) Hemoglobin A1c 5.4 % (4.8-5.6) Calcium Level 8.4 mg/dL (8.5-10.1) Total Bilirubin 0.5 mg/dL (0.2-1.0) Aspartate Amino Transf (AST/SGOT) 26 U/L (15-37) Alanine Aminotransferase (ALT/SGPT) 28 U/L (14-59) Alkaline Phosphatase 93 U/L (46-116) Creatine Kinase 240 U/L (26-192) Creatine Kinase MB (Mass) 1.2 ng/mL (0.0-3.6) Creatine Kinase MB Relative Index 0.5 % (0-4) Troponin I Quantitative < 0.017 ng/mL (0.000-0.055) YO-Ukf-P-Type Natriuretic Peptide 70 pg/mL (0-124) Total Protein 5.9 g/dL (6.4-8.2) Albumin 2.9 g/dL (3.4-5.0) Albumin/Globulin Ratio 1.0 (1.0-1.7) Urine Color Yellow Urine Clarity Cloudy Urine pH 6.5 Urine Specific [place] 1.025 Urine Protein Negative mg/dL (NEG-TRACE) Urine Glucose (UA) 500 mg/dL (NEG) Urine Ketones (Stick) Negative mg/dL (NEG) Urine Blood Negative (NEG) Urine Nitrite Negative (NEG) Urine Bilirubin Negative (NEG) Urine Urobilinogen Dipstick 1.0 mg/dL (0.2 mg/dL) Urine Leukocyte Esterase Negative (NEG) Urine RBC 0 /HPF (0-2) Urine WBC Occ /HPF (0-4) Urine Squamous Epithelial Cells Occ /LPF Urine Bacteria 0 /HPF (0-FEW) Urine Mucus Slight /LPF Glucose (Fingerstick) 108 mg/dL (70-99) Influenza Type A Antigen Positive (NEGATIVE) Influenza Type B Antigen Negative (NEGATIVE) Test 06/19/18 11:02 06/19/18 15:46 06/19/18 19:38 06/20/18 00:13 Glucose (Fingerstick) 138 mg/dL (70-99) 218 mg/dL (70-99) 355 mg/dL (70-99) 283 mg/dL (70-99) Test 06/20/18 05:29 Glucose (Fingerstick) 194 mg/dL (70-99) Laboratory Tests Test 06/19/18 07:50 06/19/18 10:52 06/19/18 11:02 06/19/18 15:46 Glucose (Fingerstick) 108 mg/dL (70-99) 138 mg/dL (70-99) 218 mg/dL (70-99) Influenza Type A Antigen Positive (NEGATIVE) Influenza Type B Antigen Negative (NEGATIVE) Test 06/19/18 19:38 06/20/18 00:13 06/20/18 05:29 Glucose (Fingerstick) 355 mg/dL (70-99) 283 mg/dL (70-99) 194 mg/dL (70-99) Allergies Allergies Coded Allergies Type Severity Reaction Last Updated Verified NSAIDS (Non-Steroidal Anti-Inflamma Allergy Intermediate 06/12/18 Yes Disposition/Orders: D/C to Home ANGELITA LABOY MD Jun 20, 2018 07:33
[2018-06-20] MEDS: IPRATRPIUM/ALBUTEROL 0.5/2.5MG 3 ML NEBU. NEB SCH (07:35)
[2018-06-20] MEDS: BUDESONIDE 0.5 MG/2 ML NEBU. NEB SCH (07:36)
[2018-06-20] MEDS: PANTOPRAZOLE 40 MG TABLET.DR. PO SCH (08:02)
[2018-06-20] MEDS: OSELTAMIVIR 75 MG CAPSULE PO SCH (08:02)
[2018-06-20 08:03] VITALS: BP 117/70
[2018-06-20] MEDS: CITALOPRAM 20 MG TABLET. PO SCH (08:03)
[2018-06-20] MEDS: FERROUS SULFATE 325 MG TABLET. PO SCH (08:03)
[2018-06-20] MEDS: GABAPENTIN 400 MG CAPSULE. PO SCH (08:03)
[2018-06-20] MEDS: APIXABAN 5 MG TABLET. PO SCH (08:03)
[2018-06-20 08:34] LABS: BASO # 0.1 x10^3/uL (0.0-0.2); BASO % 1 % (0-3); EOS % 0 % (0-3); HEMATOCRIT 25.8 % (36.0-47.0); HEMOGLOBIN 7.7 g/dL (12.0-15.5); LYMPH # 2.1 x10^3/uL (1.0-4.8); LYMPH % 14 % (24-48); MEAN CORPUSCULAR HEMOGLOBIN 27 pg (25-35); MEAN CORPUSCULAR HGB CONC 30 g/dL (31-37); MEAN CORPUSCULAR VOLUME 90 fL (79-100); MONO # 0.4 x10^3/uL (0.0-1.1); MONO % 2 % (0-9); NEUT # 12.8 x10^3uL (1.8-7.7); NEUT % 83 % (31-73); PLATELET COUNT 480 x10^3/uL (140-400); RED BLOOD COUNT 2.86 x10^6/uL (3.50-5.40); RED CELL DISTRIBUTION WIDTH 38.9 % (11.5-14.5); WHITE BLOOD COUNT 15.3 x10^3/uL (4.0-11.0)
[2018-06-20 08:39] LABS: ALBUMIN 2.7 g/dL (3.4-5.0); ALBUMIN/GLOBULIN RATIO 0.7 (1.0-1.7); CALCIUM 8.7 mg/dL (8.5-10.1); CREATININE 0.8 mg/dL (0.6-1.0); GFR 93.9; POTASSIUM 3.9 mmol/L (3.5-5.1); TOTAL BILIRUBIN 0.5 mg/dL (0.2-1.0); TOTAL PROTEIN 6.5 g/dL (6.4-8.2)
[2018-06-20] MEDS ORDERED: DOXYCYCLINE HYCLATE 100 MG TABLET PO SCH (09:00)
--- NOTE | 2018-06-20 09:27 | NUR ---
IP: Pt is influenza + requiring droplet precautions for 5 days and 24 hours without a fever, whichever is longest.
[2018-06-20 09:39] LABS: % BANDS 4 % (0-9); % LYMPHS 10 % (24-48); % SEGS 86 % (35-66); NUCLEATED RBC 5; PLT ESTIMATE INCREASED (ADEQUATE)
[2018-06-20 09:43] LABS: ANISOCYTOSIS PRESENT; HYPOCHROMIA PRESENT; MICROCYTOSIS PRESENT; POIKILOCYTOSIS PRESENT; POLYCHROMASIA PRESENT
[2018-06-20 09:44] LABS: BIZZARE CELLS PRESENT; SPHEROCYTES PRESENT
--- NOTE | 2018-06-20 10:24 | PDOC ---
PULMONARY PROGRESS NOTES Vitals Vital Signs Date Time Temp Pulse Resp B/P (MAP) Pulse Ox O2 Delivery O2 Flow Rate FiO2 06/20/18 09:19 93 06/20/18 08:03 98 117/70 06/20/18 07:36 Nasal Cannula 2.0 06/20/18 07:00 97.9 18 97.9 Lungs: Crackles Cardiovascular: S1, S2 Abdomen: Soft Extremities: No Edema Labs Laboratory Tests Test 06/18/18 13:45 06/18/18 17:38 06/19/18 07:50 06/19/18 10:52 White Blood Count 17.9 x10^3/uL (4.0-11.0) Red Blood Count 2.85 x10^6/uL (3.50-5.40) Hemoglobin 7.5 g/dL (12.0-15.5) Hematocrit 25.0 % (36.0-47.0) Mean Corpuscular Volume 88 fL (79-100) Mean Corpuscular Hemoglobin 26 pg (25-35) Mean Corpuscular Hemoglobin Concent 30 g/dL (31-37) Red Cell Distribution Width 38.9 % (11.5-14.5) Platelet Count 407 x10^3/uL (140-400) Neutrophils (%) (Auto) 87 % (31-73) Lymphocytes (%) (Auto) 8 % (24-48) Monocytes (%) (Auto) 3 % (0-9) Eosinophils (%) (Auto) 2 % (0-3) Basophils (%) (Auto) 0 % (0-3) Neutrophils # (Auto) 15.5 x10^3uL (1.8-7.7) Lymphocytes # (Auto) 1.4 x10^3/uL (1.0-4.8) Monocytes # (Auto) 0.5 x10^3/uL (0.0-1.1) Eosinophils # (Auto) 0.3 x10^3/uL (0.0-0.7) Basophils # (Auto) 0.1 x10^3/uL (0.0-0.2) O2 Saturation 86 % (92-99) Arterial Blood pH 7.47 (7.35-7.45) Arterial Blood pCO2 at Patient Temp 42 mmHg (35-46) Arterial Blood pO2 at Patient Temp 51 mmHg (75-108) Arterial Blood HCO3 29 mmol/L (21-28) Arterial Blood Base Excess 5 mmol/L (-3-3) FiO2 21 Sodium Level 141 mmol/L (136-145) Potassium Level 4.1 mmol/L (3.5-5.1) Chloride Level 100 mmol/L (98-107) Carbon Dioxide Level 34 mmol/L (21-32) Anion Gap 7 (6-14) Blood Urea Nitrogen 15 mg/dL (7-20) Creatinine 0.8 mg/dL (0.6-1.0) Estimated GFR (Cockcroft-Gault) 93.9 BUN/Creatinine Ratio 19 (6-20) Glucose Level 185 mg/dL (70-99) Hemoglobin A1c 5.4 % (4.8-5.6) Calcium Level 8.4 mg/dL (8.5-10.1) Total Bilirubin 0.5 mg/dL (0.2-1.0) Aspartate Amino Transf (AST/SGOT) 26 U/L (15-37) Alanine Aminotransferase (ALT/SGPT) 28 U/L (14-59) Alkaline Phosphatase 93 U/L (46-116) Creatine Kinase 240 U/L (26-192) Creatine Kinase MB (Mass) 1.2 ng/mL (0.0-3.6) Creatine Kinase MB Relative Index 0.5 % (0-4) Troponin I Quantitative < 0.017 ng/mL (0.000-0.055) ME-Pto-V-Type Natriuretic Peptide 70 pg/mL (0-124) Total Protein 5.9 g/dL (6.4-8.2) Albumin 2.9 g/dL (3.4-5.0) Albumin/Globulin Ratio 1.0 (1.0-1.7) Urine Color Yellow Urine Clarity Cloudy Urine pH 6.5 Urine Specific [place] 1.025 Urine Protein Negative mg/dL (NEG-TRACE) Urine Glucose (UA) 500 mg/dL (NEG) Urine Ketones (Stick) Negative mg/dL (NEG) Urine Blood Negative (NEG) Urine Nitrite Negative (NEG) Urine Bilirubin Negative (NEG) Urine Urobilinogen Dipstick 1.0 mg/dL (0.2 mg/dL) Urine Leukocyte Esterase Negative (NEG) Urine RBC 0 /HPF (0-2) Urine WBC Occ /HPF (0-4) Urine Squamous Epithelial Cells Occ /LPF Urine Bacteria 0 /HPF (0-FEW) Urine Mucus Slight /LPF Glucose (Fingerstick) 108 mg/dL (70-99) Influenza Type A Antigen Positive (NEGATIVE) Influenza Type B Antigen Negative (NEGATIVE) Test 06/19/18 11:02 06/19/18 15:46 06/19/18 19:38 06/20/18 00:13 Glucose (Fingerstick) 138 mg/dL (70-99) 218 mg/dL (70-99) 355 mg/dL (70-99) 283 mg/dL (70-99) Test 06/20/18 05:29 06/20/18 07:37 Glucose (Fingerstick) 194 mg/dL (70-99) White Blood Count 15.3 x10^3/uL (4.0-11.0) Red Blood Count 2.86 x10^6/uL (3.50-5.40) Hemoglobin 7.7 g/dL (12.0-15.5) Hematocrit 25.8 % (36.0-47.0) Mean Corpuscular Volume 90 fL (79-100) Mean Corpuscular Hemoglobin 27 pg (25-35) Mean Corpuscular Hemoglobin Concent 30 g/dL (31-37) Red Cell Distribution Width 38.9 % (11.5-14.5) Platelet Count 480 x10^3/uL (140-400) Neutrophils (%) (Auto) 83 % (31-73) Lymphocytes (%) (Auto) 14 % (24-48) Monocytes (%) (Auto) 2 % (0-9) Eosinophils (%) (Auto) 0 % (0-3) Basophils (%) (Auto) 1 % (0-3) Neutrophils # (Auto) 12.8 x10^3uL (1.8-7.7) Lymphocytes # (Auto) 2.1 x10^3/uL (1.0-4.8) Monocytes # (Auto) 0.4 x10^3/uL (0.0-1.1) Eosinophils # (Auto) 0.0 x10^3/uL (0.0-0.7) Basophils # (Auto) 0.1 x10^3/uL (0.0-0.2) Segmented Neutrophils % 86 % (35-66) Band Neutrophils % 4 % (0-9) Lymphocytes % 10 % (24-48) Nucleated Red Blood Cells 5 Platelet Estimate Increased (ADEQUATE) Polychromasia Present Hypochromasia Present Poikilocytosis Present Anisocytosis Present Microcytosis Present Macrocytosis Present Spherocytes Present RBC Morphology Bizarre Forms Present Sodium Level 140 mmol/L (136-145) Potassium Level 3.9 mmol/L (3.5-5.1) Chloride Level 102 mmol/L (98-107) Carbon Dioxide Level 30 mmol/L (21-32) Anion Gap 8 (6-14) Blood Urea Nitrogen 11 mg/dL (7-20) Creatinine 0.8 mg/dL (0.6-1.0) Estimated GFR (Cockcroft-Gault) 93.9 BUN/Creatinine Ratio 14 (6-20) Glucose Level 239 mg/dL (70-99) Calcium Level 8.7 mg/dL (8.5-10.1) Total Bilirubin 0.5 mg/dL (0.2-1.0) Aspartate Amino Transf (AST/SGOT) 37 U/L (15-37) Alanine Aminotransferase (ALT/SGPT) 28 U/L (14-59) Alkaline Phosphatase 110 U/L (46-116) Total Protein 6.5 g/dL (6.4-8.2) Albumin 2.7 g/dL (3.4-5.0) Albumin/Globulin Ratio 0.7 (1.0-1.7) Laboratory Tests Test 06/19/18 10:52 06/19/18 11:02 06/19/18 15:46 06/19/18 19:38 Influenza Type A Antigen Positive (NEGATIVE) Influenza Type B Antigen Negative (NEGATIVE) Glucose (Fingerstick) 138 mg/dL (70-99) 218 mg/dL (70-99) 355 mg/dL (70-99) Test 06/20/18 00:13 06/20/18 05:29 06/20/18 07:37 Glucose (Fingerstick) 283 mg/dL (70-99) 194 mg/dL (70-99) White Blood Count 15.3 x10^3/uL (4.0-11.0) Red Blood Count 2.86 x10^6/uL (3.50-5.40) Hemoglobin 7.7 g/dL (12.0-15.5) Hematocrit 25.8 % (36.0-47.0) Mean Corpuscular Volume 90 fL (79-100) Mean Corpuscular Hemoglobin 27 pg (25-35) Mean Corpuscular Hemoglobin Concent 30 g/dL (31-37) Red Cell Distribution Width 38.9 % (11.5-14.5) Platelet Count 480 x10^3/uL (140-400) Neutrophils (%) (Auto) 83 % (31-73) Lymphocytes (%) (Auto) 14 % (24-48) Monocytes (%) (Auto) 2 % (0-9) Eosinophils (%) (Auto) 0 % (0-3) Basophils (%) (Auto) 1 % (0-3) Neutrophils # (Auto) 12.8 x10^3uL (1.8-7.7) Lymphocytes # (Auto) 2.1 x10^3/uL (1.0-4.8) Monocytes # (Auto) 0.4 x10^3/uL (0.0-1.1) Eosinophils # (Auto) 0.0 x10^3/uL (0.0-0.7) Basophils # (Auto) 0.1 x10^3/uL (0.0-0.2) Segmented Neutrophils % 86 % (35-66) Band Neutrophils % 4 % (0-9) Lymphocytes % 10 % (24-48) Nucleated Red Blood Cells 5 Platelet Estimate Increased (ADEQUATE) Polychromasia Present Hypochromasia Present Poikilocytosis Present Anisocytosis Present Microcytosis Present Macrocytosis Present Spherocytes Present RBC Morphology Bizarre Forms Present Sodium Level 140 mmol/L (136-145) Potassium Level 3.9 mmol/L (3.5-5.1) Chloride Level 102 mmol/L (98-107) Carbon Dioxide Level 30 mmol/L (21-32) Anion Gap 8 (6-14) Blood Urea Nitrogen 11 mg/dL (7-20) Creatinine 0.8 mg/dL (0.6-1.0) Estimated GFR (Cockcroft-Gault) 93.9 BUN/Creatinine Ratio 14 (6-20) Glucose Level 239 mg/dL (70-99) Calcium Level 8.7 mg/dL (8.5-10.1) Total Bilirubin 0.5 mg/dL (0.2-1.0) Aspartate Amino Transf (AST/SGOT) 37 U/L (15-37) Alanine Aminotransferase (ALT/SGPT) 28 U/L (14-59) Alkaline Phosphatase 110 U/L (46-116) Total Protein 6.5 g/dL (6.4-8.2) Albumin 2.7 g/dL (3.4-5.0) Albumin/Globulin Ratio 0.7 (1.0-1.7) Medications Active Scripts Medications Dose Route/Sig Max Daily Dose Days Date Category Ferralet 90 Dual-Iron Tablet (Iron, Carb & Gluc/Fa/B12/C/Dss) 1 Each Tablet 1 Tab PO DAILY 06/18/18 Reported Eliquis (Apixaban) 2.5 Mg Tablet 2.5 Mg PO BID PRN 06/18/18 Reported Advair 500-50 Diskus (Fluticasone/Salmeterol) 1 Each Disk.w.dev 1 Puff IH BID 06/08/18 Rx Mirapex (Pramipexole Di-Hcl) 0.25 Mg Tablet 1 Tab PO QHS 06/08/18 Reported Xanax (Alprazolam) 0.5 Mg Tablet 1 Tab PO PRN DAILY PRN 06/08/18 Reported Proair Hfa Inhaler (Albuterol Sulfate) 8.5 Gm Hfa.aer.ad 1 Puff INH PRN Q6HRS PRN 06/08/18 Reported Baclofen 20 Mg Tablet 1 Tab PO TID 06/08/18 Reported Cyclobenzaprine Hcl 5 Mg Tablet 1 Tab PO PRN BID 06/08/18 Reported Protonix (Pantoprazole Sodium) 20 Mg Tablet.dr 40 Mg PO DAILY 06/08/18 Reported Cardizem Tablet (Diltiazem Hcl) 30 Mg Tablet 30 Mg PO DAILY 06/08/18 Reported Lexapro (Escitalopram Oxalate) 20 Mg Tablet 1 Tab PO DAILY 06/08/18 Reported Gabapentin 600 Mg Tablet 600 Mg PO TID 06/08/18 Reported Impression . NOTE DICTATED THANKS INFLUENZA AGREE WITH CURRENT RX NO NEW PE JEREMI WINN MD Jun 20, 2018 10:24
--- NOTE | 2018-06-20 11:20 | NUR ---
Discharge Note: ADONIS PIMENTEL [address] Discharge instructions and discharge home medications reviewed with Patient and a copy given. All questions have been answered and understanding verbalized. The following instructions and handouts were given: information about hypoxia and anemia. Discontinued lines and drains: IV lines in right hand and left forearm removed, catheter tips intact. Patient discharged to home with self care, wheelchair used for mobility to discharge vehicle.
== END 2018-06-20 11:20 | disposition home or self-care (01) | DRG 193 ==
LOC: ER 13:09 → 6 SOUTH 16:18
PROVIDERS: ADMIT Family Medicine; ATTEND Family Medicine
DX: J10.1 Influenza due to other identified influenza virus with other respiratory manifestations (principal); J96.01 Acute respiratory failure with hypoxia; T38.0X5A Adverse effect of glucocorticoids and synthetic analogues, initial encounter; J20.8 Acute bronchitis due to other specified organisms; F32.9 Major depressive disorder, single episode, unspecified; F41.9 Anxiety disorder, unspecified; D50.9 Iron deficiency anemia, unspecified; E11.9 Type 2 diabetes mellitus without complications; K21.9 Gastro-esophageal reflux disease without esophagitis; I27.29 Other secondary pulmonary hypertension; I48.91 Unspecified atrial fibrillation; J45.909 Unspecified asthma, uncomplicated; Z90.49 Acquired absence of other specified parts of digestive tract; Z79.01 Long term (current) use of anticoagulants; Y92.89 Other specified places as the place of occurrence of the external cause; Z79.899 Other long term (current) drug therapy; Z80.0 Family history of malignant neoplasm of digestive organs; Z82.49 Family history of ischemic heart disease and other diseases of the circulatory system; Z83.3 Family history of diabetes mellitus; Z86.711 Personal history of pulmonary embolism; Z86.718 Personal history of other venous thrombosis and embolism; Z87.09 Personal history of other diseases of the respiratory system
CPT/HCPCS: 36415; 36600; 71045; 71275; 80053; 81001; 82550; 82553; 82805; 82962; 83036; 83880; 84484; 85007; 85025; 87804; 93005; 94640; 94760; J1815; J2920; J7620; J7626; 99285-25